=== PATIENT | male | born 1940 | race Caucasian/White ===

== ENCOUNTER → 2017-05-30 | Outpatient (REF) | payer OTHER ==
[~2017-05-30] MED LIST: /WARF5TA PO; ASPI1TAB PO; ASPIRIN PO; LEVO75TA4 PO; LEVOTHYROXINE PO; LIPI10TA PO; LIPITOR PO; MULTTAB PO; PERC7.5T12 PO; TYLE325T5 PO; VITA100066 PO; VITAMIN D PO; VITMTA PO
[2017-05-30 11:42] LABS: MEAN CORPUSCULAR HEMOGLOBIN 30.8 pg (27.0-33.0); MEAN CORPUSCULAR HGB CONC 33.3 g/dl (32.0-36.5); MEAN CORPUSCULAR VOLUME 92.3 fl (80.0-96.0); RED CELL DISTRIBUTION WIDTH 13.4 % (11.5-14.5); WHITE BLOOD COUNT 16.8 10^3/uL (4.0-10.0)
[2017-05-30 11:58] LABS: CBCMD ORDERED? YES (YES)
[2017-05-30 12:27] LABS: ALKALINE PHOSPHATASE 65 U/L (45-117); ALT/SGPT 29 U/L (12-78); ANION GAP 7 MEQ/L (8-16); AST/SGOT 13 U/L (15-37); BLOOD UREA NITROGEN 16 MG/DL (7-18); CALCIUM LEVEL 9.3 MG/DL (8.8-10.2); CARBON DIOXIDE LEVEL 28 MEQ/L (21-32); CHLORIDE LEVEL 105 MEQ/L (98-107); CHOLESTEROL LEVEL 154 MG/DL (<200); CREATININE FOR GFR 1.01 MG/DL (0.70-1.30); GLOMERULAR FILTRATION RATE > 60.0 (>42); GLUCOSE, FASTING 102 MG/DL (83-110); POTASSIUM SERUM 4.8 MEQ/L (3.5-5.1); SODIUM LEVEL 140 MEQ/L (136-145); TOTAL PROTEIN 6.8 GM/DL (6.4-8.2); TRIGLYCERIDES LEVEL 99 MG/DL (<150)
[2017-05-30 12:28] LABS: ALBUMIN 3.9 GM/DL (3.2-5.2); ALBUMIN/GLOBULIN RATIO 1.34 (1.00-1.93); FREE T4 0.87 NG/DL (0.76-1.46)
== END ==
LOC: M SFHCCLAY 06:53
PROVIDERS: ATTEND Family Medicine
DX: C91.10 Chronic lymphocytic leukemia of B-cell type not having achieved remission (principal); E78.2 Mixed hyperlipidemia; E89.0 Postprocedural hypothyroidism; R97.20 Elevated prostate specific antigen [PSA]

== ENCOUNTER → 2017-09-22 | Outpatient (CLI) | payer OTHER | LOC: M RAD 16:26 | DX: J06.9 Acute upper respiratory infection, unspecified (principal) | CPT/HCPCS: 71046 ==

== ENCOUNTER → 2018-05-28 | Outpatient (REF) | payer OTHER ==
[2018-05-28 13:04] LABS: HEMATOCRIT 39.6 % (42.0-52.0); HEMOGLOBIN 12.8 g/dl (13.5-17.5); MEAN CORPUSCULAR HEMOGLOBIN 30.5 pg (27.0-33.0); MEAN CORPUSCULAR HGB CONC 32.3 g/dl (32.0-36.5); MEAN CORPUSCULAR VOLUME 94.5 fl (80.0-96.0); PLATELET COUNT, AUTOMATED 173 10^3/uL (150-450); RED BLOOD COUNT 4.19 10^6/uL (4.30-6.10); RED CELL DISTRIBUTION WIDTH 13.6 % (11.5-14.5)
[2018-05-28 13:09] LABS: ADD MANUAL DIFFER YES; DIFF SLIDE NUMBER 226; POSITIVE DIFF POS FLAG; POSITIVE MORPH POS FLAG; WHITE BLOOD COUNT 21.5 10^3/uL (4.0-10.0)
[2018-05-28 13:22] LABS: ALBUMIN 3.5 GM/DL (3.2-5.2); ALBUMIN/GLOBULIN RATIO 1.25 (1.00-1.93); ALKALINE PHOSPHATASE 54 U/L (45-117); ALT/SGPT 33 U/L (12-78); ANION GAP 6 MEQ/L (8-16); AST/SGOT 18 U/L (7-37); BILIRUBIN,TOTAL 0.4 MG/DL (0.2-1.0); BLOOD UREA NITROGEN 21 MG/DL (7-18); CALCIUM LEVEL 8.7 MG/DL (8.8-10.2); CARBON DIOXIDE LEVEL 29 MEQ/L (21-32); CHLORIDE LEVEL 111 MEQ/L (98-107); CHOLESTEROL LEVEL 139 MG/DL (<200); CHOLESTEROL RISK RATIO 3.309 (<5); CREATININE FOR GFR 1.05 MG/DL (0.70-1.30); FREE T4 0.85 NG/DL (0.76-1.46); GLOMERULAR FILTRATION RATE > 60.0 (>42); GLUCOSE, FASTING 109 MG/DL (70-100); HDL CHOLESTEROL 42 MG/DL (>40); LDL CHOLESTEROL 72 MG/DL (<100); NON-HDL-C 97 MG/DL; POTASSIUM SERUM 4.8 MEQ/L (3.5-5.1); PROSTATIC SPECIFIC AG MONITOR 4.71 NG/ML (< 4.0); SODIUM LEVEL 146 MEQ/L (136-145); TOTAL PROTEIN 6.3 GM/DL (6.4-8.2); TRIGLYCERIDES LEVEL 123 MG/DL (<150)
[2018-05-28 13:29] LABS: ATYPICAL LYMPH 50 % (0-5); LYMPHOCYTES 21 % (16-52); MONOCYTES 7 % (0-8); NEUTROPHILS 22 % (35-75); NUCLEATED RED BLOOD CELL 1 % (0-0); PLATELET ESTIMATE NORMAL (NORMAL)
[2018-05-28 13:30] LABS: SMUDGE CELLS 1+
[2018-05-28 14:57] LABS: ESTIMATED AVERAGE GLUCOSE 128 MG/DL (60-110); HEMOGLOBIN A1c 6.1 %
== END ==
LOC: M SFHCCLAY 06:49
DX: C91.10 Chronic lymphocytic leukemia of B-cell type not having achieved remission (principal); E89.0 Postprocedural hypothyroidism; E74.9 Disorder of carbohydrate metabolism, unspecified; E78.2 Mixed hyperlipidemia; E55.9 Vitamin D deficiency, unspecified; R97.20 Elevated prostate specific antigen [PSA]
CPT/HCPCS: 84443

== ENCOUNTER → 2018-06-05 | Outpatient (CLI) | payer OTHER | LOC: M SMT 09:43 | DX: S13.140A Subluxation of C3/C4 cervical vertebrae, initial encounter (principal); S13.150A Subluxation of C4/C5 cervical vertebrae, initial encounter; X58.XXXA Exposure to other specified factors, initial encounter; Y92.89 Other specified places as the place of occurrence of the external cause; M25.78 Osteophyte, vertebrae; M17.11 Unilateral primary osteoarthritis, right knee; M54.2 Cervicalgia; M25.561 Pain in right knee; Z23 Encounter for immunization | CPT/HCPCS: 72052; 90682 ==

== ENCOUNTER → 2018-10-16 | Outpatient (CLI) | payer MEDICARE ==
[~2018-10-16] MED LIST changes: +FISH120016 PO; +LEVO50TA5 PO
[2018-10-16 11:44] LABS: HEMATOCRIT 41.5 % (42.0-52.0); HEMOGLOBIN 13.8 g/dl (13.5-17.5); MEAN CORPUSCULAR HEMOGLOBIN 30.3 pg (27.0-33.0); MEAN CORPUSCULAR HGB CONC 33.3 g/dl (32.0-36.5); MEAN CORPUSCULAR VOLUME 91.2 fl (80.0-96.0); PLATELET COUNT, AUTOMATED 172 10^3/uL (150-450); RED BLOOD COUNT 4.55 10^6/uL (4.30-6.10); WHITE BLOOD COUNT 24.8 10^3/uL (4.0-10.0)
[2018-10-16 12:02] LABS: ALT/SGPT 28 U/L (12-78); BILIRUBIN,TOTAL 0.7 MG/DL (0.2-1.0); BLOOD UREA NITROGEN 17 MG/DL (7-18); CALCIUM LEVEL 9.6 MG/DL (8.8-10.2); CARBON DIOXIDE LEVEL 29 MEQ/L (21-32); CHLORIDE LEVEL 103 MEQ/L (98-107); CREATININE FOR GFR 0.98 MG/DL (0.70-1.30); GLOMERULAR FILTRATION RATE > 60.0 (>42); GLUCOSE, FASTING 108 MG/DL (70-100); POTASSIUM SERUM 4.5 MEQ/L (3.5-5.1); SODIUM LEVEL 140 MEQ/L (136-145); TOTAL PROTEIN 6.7 GM/DL (6.4-8.2)
[2018-10-16 12:04] LABS: INR 0.96; PROTHROMBIN TIME 12.9 SECONDS (12.1-14.4)
[2018-10-16 12:14] LABS: ERYTHROCYTE SEDIMENTATION RATE 6 mm/hr (0-20)
--- NOTE | 2018-10-16 12:48 | REP ---
CHEST, TWO VIEWS: Two views of the chest are performed and compared to a prior study of 09/22/2017. There is no acute infiltrate with no change since the prior study. The heart is not enlarged. There is slight elevation of the left hemidiaphragm unchanged. There it tortuosity of the thoracic aorta. The mediastinal silhouette is unchanged. There are degenerative changes of the spine. IMPRESSION: No acute pulmonary disease. Electronically Signed by Marko Haile MD 10/19/2018 11:16 A
--- NOTE | 2018-10-17 17:34 | ECGEPIP ---
Stationary ECG Study [facility] Test Date: 2018-10-16 Pat Name: ANALY PADRON Department: Room: - Gender: M Bag Maker: [facility] : 1940 Requested By: Eliazar Kennedy Order Number: [id number] Reading MD: Tj Wylie Measurements Intervals [place] Rate: 65 P: 67 VT: 206 QRS: 4 QRSD: 94 T: 49 QT: 386 QTc: 402 Interpretive Statements SINUS RHYTHM Borderline first degree AV block Comparison tracing not on file Electronically Signed On 10-17-2018 17:33:38 EST by Tj Wylie
== END ==
LOC: M LAB 10:43
PROVIDERS: ATTEND Orthopaedic Surgery
DX: Z01.818 Encounter for other preprocedural examination (principal); M17.11 Unilateral primary osteoarthritis, right knee; I44.0 Atrioventricular block, first degree

== ENCOUNTER 2018-11-03 06:57 | Inpatient (IN) | payer MEDICARE ==
--- NOTE | 2018-10-23 13:06 | HPE ---
DATE OF ADMISSION: 11/03/2018 HISTORY OF PRESENT ILLNESS: This is a pleasant 78-year-old male with continuing symptomatic right knee osteoarthritis. He has consented for a right total knee arthroplasty per Dr. Brent Steiner. Medical optimization completed with Dr. Butler on 10/21/2018. The patient reports he was cleared, I am still awaiting the note. X-rays are consistent with advanced osteoarthritis. ALLERGIES: None known to drugs. MEDICATIONS (List includes): - levothyroxine sodium 125 mcg - atorvastatin calcium - fish oil 1000 mg - Multivitamin complete. MEDICAL PROBLEM LIST: 1. Right knee osteoarthritis. 2. Thyroid disease. 3. Hypercholesteremia. 4. Leukemia chronic lymphocytic. PAST SURGICAL HISTORY: 1. Left knee arthroplasty. 2. Right toe surgery. SOCIAL HISTORY: Denies smoking. Rarely intakes ethanol. Denies illicit drugs. FAMILY HISTORY: Positive for hypertension and arthritis. REVIEW OF SYSTEMS: Denies chest pain, shortness of breath, fever, chills, malaise, upper respiratory or urinary tract symptoms. ELECTROCARDIOGRAM (EKG): Borderline first-degree AV block read by Dr. Tj Wylie. CHEST X-RAY: Via [facility] service date 10/16/2018 with no acute pulmonary disease as read by Dr. Haile. LABS: Glucose fasting 108. White count was elevated at 24.8 and hematocrit at 41.5, otherwise within normal limits. His white count is likely attributable to his chronic lymphocytic disease. PHYSICAL EXAMINATION: Blood pressure (BP) 131/84. Pulse 66. Temperature 97.2. Height 66 inches. Weight 181 and 8 ounces. BMI 29.3. Respirations 13. He is a pleasant, well-developed, well-nourished, overweight 78-year-old male in no acute distress. Alert and oriented times three. Mood and affect are appropriate. Bilateral lower extremities were inspected. Skin temperature, color, sensory and motor within normal limits. Benign noninfectious looking limbs. Left total knee arthroplasty noted with a well-healed benign noninfectious looking scar. Right knee with positive joint line tenderness to palpation with crepitance about the knee through flexion/extension. PFJ is congruent, static and dynamic. Negative popliteal fossa mass or pain. Right hip range of motion is not grossly limited or irritable during internal or external range of motion. Bowels soft, nontender times four. Chest rises symmetrically. Regular rate and rhythm. Lungs clear to auscultation. Neck supple. Negative jugular venous distention (JVD) or bruits. Normocephalic. IMPRESSION: 1. Right knee symptomatic advanced degenerative joint disease (DJD). 2. Patient consented for right total knee arthroplasty per Dr. Brent Warren. 3. Medical optimization completed with Dr. Butler on 10/21/2018, per patient, we are awaiting clearance note. 4. On-call to OR, 2 grams IV Kefzol in OR. 5. Sequential compression device (SCD) and thromboembolic deterrent stockings (TEDS) in OR. 6. His consent was updated today. [facility]
[2018-11-03] VITALS (8 sets, daily range): BP systolic 140–162; BP diastolic 81–94
[~2018-11-03] VITALS: Ht 170.2 cm; Wt 83.8 kg
[~2018-11-03 06:57] MED LIST changes: +ACETAMINOPHEN 500 MG TAB PO ONE; +LR 1,000 ML IV ONE; +fentaNYL 100 MCG/2 ML INJECTION (J3010) IV SCH
[2018-11-03] MEDS ORDERED: EPINEPHrine INJ 1 MG/ML 1ML AMP As Ordered ONE (07:17)
[2018-11-03] MEDS ORDERED: ceFAZolin 1GM INJ (J0690 PER 500MG) As Ordered ONE (07:18)
[2018-11-03] MEDS ORDERED: TRANEXAMIC ACID 100 MG/ML 10ML VIAL As Ordered ONE (07:18)
[2018-11-03] MEDS ORDERED: BUPIVACAINE HCL 0.25% 30 ML VIAL As Ordered ONE (07:18)
[2018-11-03] MEDS ORDERED: fentaNYL 100 MCG/2 ML INJECTION (J3010) As Ordered ONE ×2 (08:25→09:26)
[2018-11-03] MEDS ORDERED: MIDAZOLAM INJ 2 MG/2 ML VIAL (J2250) As Ordered ONE ×2 (08:25→09:26)
[2018-11-03] MEDS: MIDAZOLAM INJ 2 MG/2 ML VIAL (J2250) IV SCH ×2 (08:38→08:40)
[2018-11-03] MEDS ORDERED: PROPOFOL 500 MG/50 ML VIAL As Ordered ONE (09:26)
[2018-11-03] MEDS ORDERED: BUPIVACAINE/DEXTROSE 0.75% 2 ML AMP As Ordered ONE (09:26)
[2018-11-03] MEDS ORDERED: BUPIVACAINE LIPOSOME/PF 1.3% 20ML VIAL (13.3MG/ML)(EXPAREL)(C9290 PER1MG) As Ordered ONE (09:29)
[2018-11-03] MEDS ORDERED: ePHEDrine SULFATE 25 MG/5 ML(5MG/ML) SYRINGE As Ordered ONE ×2 (09:51→10:45)
[2018-11-03] MEDS ORDERED: ONDANSETRON 4MG/2ML VIAL (J2405) IV PRN ×2 (11:15→17:15)
[2018-11-03] MEDS ORDERED: ACETAMINOPHEN TAB 650MG DOSE (2X325MG) PO PRN (11:15)
[2018-11-03] MEDS ORDERED: fentaNYL 100 MCG/2 ML INJECTION (J3010) IV PRN (11:15)
[2018-11-03] MEDS ORDERED: LR 1,000 ML IV SCH ×2 (11:15)
[2018-11-03] MEDS ORDERED: PERCOCET 5MG/325MG TAB PO PRN ×2 (11:15→17:15)
[2018-11-03] MEDS ORDERED: FLEET ENEMA PR PRN (11:15)
[2018-11-03] MEDS ORDERED: HYDROMORPHONE HCL 0.5 MG/ 0.5 ML SYRINGE (J1170 PER 1) IV PRN ×2 (11:30)
[2018-11-03] MEDS ORDERED: HYDROmorphone HCL 1 MG/ML SYRINGE (J1170) IV PRN (11:30)
--- NOTE | 2018-11-03 11:49 | REP ---
RIGHT KNEE: Two views. HISTORY: Status post total knee. COMPARISON STUDY: June 05, 2018. FINDINGS: The patient is status post right knee arthroplasty. Arthroplasty components are well aligned with respect to each other and their quina[place] bones. Suprapatellar soft tissue gas and swelling is seen. Prepatellar cyst and rachel are noted. IMPRESSION: Status post right knee arthroplasty. Electronically Signed by Bob Lundberg MD 11/03/2018 02:56 P
[2018-11-03] MEDS ORDERED: dexameTHASONE 10 MG/1 ML VIAL PRES.FREE (J1100) ONE (14:12)
[2018-11-03] MEDS ORDERED: ROPIvacaine 0.5% 30 ML INJECTION (J2795 PER 1MG) ONE (14:12)
[2018-11-03] MEDS ORDERED: LIDOCAINE 1% MDV 20ML VIAL ONE (14:12)
[2018-11-03] MEDS: PERCOCET 5MG/325MG TAB PO PRN (17:37)
--- NOTE | 2018-11-03 18:58 | IPNPDOC ---
Text Note Date of Service The patient was seen on 11/03/18. NOTE Subjective: Patient is a 78-year-old male with a PMHx of OA, Hypothyroidism, DLP, CLL who presented to [facility] for an elective right knee arthroplasty with orthopedic surgery. Patient has received outpatient medical clearance. Hospitalist service was consult and for further evaluation and treatment of medical problems Patient was seen and examined at the bedside. Currently patient denies any chest pain, shortness of breath, palpitations, nausea, vomiting, abdominal pain. Has not yet experienced a bowel movement nor has he passed any gas. He denies any urinary discomfort. Objective: Vitals (See below) General: Lying in bed, no acute distress, comfortable, AAOx3 HEENT: NC, AT CVS: RRR, +S1S2 Lungs: Fair air entry b/l, -w/r/r Abdomen: Soft, ND, NT Extremities: - Edema, - Calf tenderness, right knee in dressing Assessment and plan: Right knee osteoarthritis - s/p total right knee arthroplasty (POD#0) - Patient presented to [facility] for an elective right knee arthroplasty with orthopedic surgery - Pain control anti-coagulation and physical therapy at the direction orthopedic surgery Hypothyroidism - c/w levothyroxine DLP - c/w Atorvastatin CLL - Patient is indicated that he has not yet received any therapy for this - Patient follows with oncology in [place] - He is indicated that they currently monitor this every 6 months; however it has not yet required treatment DVT prophylaxis - Anticoagulation as per orthopedic surgery VS,Fishbone, I+O VS, Fishbone, I+O Vital Signs Date Time Temp Pulse Resp B/P (MAP) Pulse Ox O2 Delivery O2 Flow Rate FiO2 11/03/18 18:07 18 11/03/18 17:40 97.4 73 146/87 (106) 93 11/03/18 10:57 2 DOMINIK APPLE MD Nov 03, 2018 18:58
[2018-11-03] MEDS ORDERED: ATORVASTATIN 10 MG TAB PO SCH (21:00)
[2018-11-04] MEDS: PERCOCET 5MG/325MG TAB PO PRN (01:42)
[2018-11-04 02:00] VITALS: BP 117/66
[2018-11-04 06:00] VITALS: BP 132/72
[2018-11-04] MEDS ORDERED: LEVOTHYROXINE 50MCG TABLET (0.05MG) PO SCH (06:00)
[2018-11-04 07:18] LABS: HEMATOCRIT 34.8 % (42.0-52.0); HEMOGLOBIN 11.7 g/dl (13.5-17.5); MEAN CORPUSCULAR HEMOGLOBIN 30.2 pg (27.0-33.0); MEAN CORPUSCULAR HGB CONC 33.6 g/dl (32.0-36.5); MEAN CORPUSCULAR VOLUME 89.7 fl (80.0-96.0); PLATELET COUNT, AUTOMATED 152 10^3/uL (150-450); RED BLOOD COUNT 3.88 10^6/uL (4.30-6.10)
[2018-11-04 07:33] LABS: INR 1.11; PROTHROMBIN TIME 14.5 SECONDS (12.1-14.4)
[2018-11-04 07:39] LABS: WHITE BLOOD COUNT 31.1 10^3/uL (4.0-10.0)
[2018-11-04 07:44] LABS: BLOOD UREA NITROGEN 17 MG/DL (7-18); CALCIUM LEVEL 9.2 MG/DL (8.8-10.2); CARBON DIOXIDE LEVEL 26 MEQ/L (21-32); CHLORIDE LEVEL 106 MEQ/L (98-107); CREATININE FOR GFR 1.08 MG/DL (0.70-1.30); GLOMERULAR FILTRATION RATE > 60.0 (>42); GLUCOSE, FASTING 136 MG/DL (70-100); POTASSIUM SERUM 4.3 MEQ/L (3.5-5.1); SODIUM LEVEL 139 MEQ/L (136-145)
[2018-11-04 07:45] LABS: LYMPHOCYTES 53 % (16-52); MONOCYTES 1 % (0-8); NEUTROPHILS 46 % (35-75)
[2018-11-04 07:46] LABS: PLATELET ESTIMATE DECREASED (NORMAL)
--- NOTE | 2018-11-04 08:19 | RO ---
DATE OF PROCEDURE: 11/03/2018 PREOPERATIVE DIAGNOSIS: Right knee degenerative arthritis. POSTOPERATIVE DIAGNOSIS: Right knee degenerative arthritis. PROCEDURE: Right total knee arthroplasty using a size 5 cruciate retaining Attune femoral component cemented with a size 7 tibial tray and a 6 mm rotating platform polyethylene insert and a 35 mm polyethylene button. Prosthesis made by [employer]. It was an Attune knee. SURGEON: Dr. Eliazar Steiner ENVIRONMENTAL ENGINEERING ASSISTANT: Mr. Vu Banks ANESTHESIA: Spinal with right femoral nerve block. COMPLICATIONS: None. SPECIMENS: Joint surface. TOURNIQUET TIME: 53 minutes. PROCEDURE: Antibiotics were given intravenously preoperatively and a successful right femoral nerve block and then spinal anesthetic was induced and a tourniquet was placed right upper thigh and non-inflated. Right lower extremity was carefully prepped and draped in the usual sterile fashion, leg elevated and an appropriate time out and tourniquet was inflated and a longitudinal incision was made for medial parapatellar approach to the knee. Bovie cautery was used to coagulate the crossing the vessels. Subperiosteal dissection of the proximal medial and lateral tibial plateaus were performed. The patella was everted and the knee was flexed. ACL debrided. Drill placed down the center of the femoral canal followed by the intramedullary melody and the distal femoral cutting jig set at a 5 degree valgus cut at 9 mm resection level for a right knee. It was pinned in position and then a distal femoral cut was performed. AP sizing jig measured for a size 5. 3 degrees of external rotation were dialed into the position and the pins were placed followed by the 4-in-1 block and the anterior posterior chamfer cuts were performed taking great care to protect to the surrounding soft tissues. The notch plasty was performed using a jig after it was secured and then checked to be sure that it was flush and then we exposed the proximal tibia and used the extramedullary alignment jig to estimate being parallel to the mechanical axis of the proximal tibia referencing off the medial tibial condyle at 4 mm resection level. The block was pinned in position and a secondary check with extramedullary melody confirmed that we appear to be parallel to the mechanical axis with appropriate slope. We then performed the proximal tibial osteotomy. Lamina ski patrol officer was then placed medially and we performed a completion lateral meniscectomy and debridement of posterior lateral osteophytes which were just minimal and then we placed the lamina ski patrol officer laterally and performed a completion medial meniscectomy and debrided some small posterior medial osteophytes. The 6 mm spacer fit very nicely with good symmetry in both flexion and in extension to varus and valgus stress testing. I then exposed the proximal tibia and sized for a #7 tray which fit the best. It was pinned in position, followed by the reamer and broach and the trial polyethylene placed. The trial femoral component was placed and we brought to the knee into extension and everted the patella and performed a patellar osteotomy. Sized for a 35 mm button. The level was drilled and a trial placed and patellofemoral tracking with anatomic. At this point we drilled the lug holes for the femur and removed all the trial components and then we placed Exparel in the subperiosteal tissues around the distal femur and the proximal tibia. Copious amount of pulsatile lavage irrigant solution was then instilled in the knee as we did several times actually throughout the operation and as I was preparing the bony surfaces for cementing my customer assistant Mr. Vu Banks mixed the cement on the back table. He was also critical to the success of this operating by helping to apply appropriate soft-tissue retraction and help to manipulate the knee in flexion and extension as needed so I can perform the operation safely and smoothly and efficiently as well as help with mixing the cement and preparing the patient and closing the wound amongst many other tasks. Once all the bony surfaces were thoroughly dried, we cemented the tibial tray and removed excess cement and then placed the polyethylene and then cemented the femoral component and removed excess cement and brought the knee into extension and held it in extension as I cemented the patellar button and held it with a clamp and then removed the excess cement. As we were awaiting the cement to harden. We copiously pulsatile lavaged irrigated out the knee joint once again and then instilled TXA and then began closing the apex of the arthrotomy with two #1 PDS sutures and then a running double arm #1 Stratafix was used to close the capsule then we let the tourniquet down. We irrigated again and closed the deep subdermal tissues with interrupted 2-0 PDS sutures. Skin was closed with racehl. Covered by an Optifoam or dry sterile bulky dressing and then he was transferred to the recovery room in stable condition. There are no intraoperative complications.
[2018-11-04] MEDS ORDERED: XARE10TA PO (08:48)
[2018-11-04] MEDS ORDERED: PERC5TAB12 PO (08:48)
[2018-11-04] MEDS ORDERED: MULTIVITAMINS/MINERALS THERAP 1 TAB PO SCH (09:00)
[2018-11-04] MEDS ORDERED: MIRALAX *UNIT DOSE* 17GM PACKET PO SCH (09:00)
[2018-11-04] MEDS ORDERED: OMEGA-3 1000MG CAPSULE PO SCH (09:00)
[2018-11-04] MEDS ORDERED: MOM 30ML SUSPENSION UDC PO SCH (09:00)
[2018-11-04 10:00] VITALS: BP 128/88
--- NOTE | 2018-11-04 10:46 | IPNPDOC ---
Subjective Date Seen The patient was seen on 11/04/18. Subjective Chief Complaint/HPI RIGHT TKA Events since last encounter S/p RIGHT TKA with Ortho. WBC elevated at 31.1 todya. Patient has hx of CLL and WBC remains around 20-22,000 at baseline. Patient hoping to go home today. Pulmonary: Denies: Dyspnea, Cough Cardiovascular: Denies: Chest Pain, Palpitations, Orthopnea, Paroxysmal Noc. Dyspnea, Lt Headedness Gastrointestinal: Denies: Nausea, Vomiting, Abdominal Pain, Diarrhea, Constipation Objective Physical Examination General Exam: Positive: Alert, No Acute Distress Chest Exam: Positive: Clear to auscultation, Normal air movement Heart Exam: Positive: Rate Normal, Regular Rhythm, Normal S1, Normal S2; Negative: Murmurs, Rubs Abdomen Exam: Positive: Normal bowel sounds, Soft; Negative: Tenderness, Hepatospenomegaly Skin Exam: Positive: Nl turgor and temperature; Negative: Rash, Breakdown Psych Exam: Positive: Mental status NL, Mood NL, Oriented x 3 Assessment /Plan Problems (1) Status post total right knee replacement Problem Text: Continue with anti-coagulation per Ortho recommendations. (2) CLL (chronic lymphocytic leukemia) Problem Text: repeat CBC in am if still in hospital. otherwise recheck in 3-5 days. (3) Hypothyroid Status: Chronic Response to Treatment: Stable Plan/VTE VTE Prophylaxis Ordered?: Yes VS, I&O, 24H, Fishbone Vital Signs/I&O Vital Signs Date Time Temp Pulse Resp B/P (MAP) Pulse Ox O2 Delivery O2 Flow Rate FiO2 11/04/18 09:32 18 11/04/18 06:00 97.6 99 132/72 (92) 98 11/03/18 10:57 2 I&O- Last 24 Hours up to 6 AM 11/04/18 06:00 Intake Total 3995 ml Output Total 2090 ml Balance 1905 ml Laboratory Data 24H LABS Laboratory Tests 2 11/04/18 06:55: White Blood Count 31.1*H, Red Blood Count 3.88L, Hemoglobin 11.7L, Hematocrit 34.8L, Mean Corpuscular Volume 89.7, Mean Corpuscular Hemoglobin 30.2, Mean Corpuscular Hemoglobin Concent 33.6, Red Cell Distribution Width 13.7, Platelet Count 152, Lymphocytes # (Auto) , Monocytes # (Auto) , Nucleated Red Blood Cells % (auto) 0.0, Neutrophils 46, Lymphocytes (Manual) 53H, Monocytes (Manual) 1, Platelet Estimate DECREASED, Prothrombin Time 14.5H, Prothromb Time International Ratio 1.11, Anion Gap 7L, Glomerular Filtration Rate > 60.0, Blood Urea Nitrogen 17, Creatinine 1.08, Sodium Level 139, Potassium Level 4.3, Chloride Level 106, Carbon Dioxide Level 26, Calcium Level 9.2, Magnesium Level 2.0 CBC/BMP Laboratory Tests 11/04/18 06:55 Red Blood Count 3.88 L, Mean Corpuscular Volume 89.7, Mean Corpuscular Hemoglobin 30.2, Mean Corpuscular Hemoglobin Concent 33.6, Red Cell Distribution Width 13.7, Lymphocytes # (Auto) , Monocytes # (Auto) , Calcium Level 9.[address] [facility] Nov 04, 2018 10:46
[2018-11-04] MEDS ORDERED: RIVAROXABAN 10 MG TAB (XARELTO) PO SCH (18:00)
== END 2018-11-04 14:00 | disposition home or self-care (01) | DRG 470 ==
LOC: M OR 06:57 → M MS5PR 13:05
PROVIDERS: ADMIT Orthopaedic Surgery; ATTEND Orthopaedic Surgery
PROC: 0SRC0J9 Replacement of Right Knee Joint with Synthetic Substitute, Cemented, Open Approach (ICD-10-PCS; principal; 2018-11-03 09:45)
DX: M17.11 Unilateral primary osteoarthritis, right knee (principal); C91.10 Chronic lymphocytic leukemia of B-cell type not having achieved remission; Z79.899 Other long term (current) drug therapy; E78.00 Pure hypercholesterolemia, unspecified; Z96.652 Presence of left artificial knee joint; E89.0 Postprocedural hypothyroidism; E55.9 Vitamin D deficiency, unspecified; N40.0 Benign prostatic hyperplasia without lower urinary tract symptoms; E78.2 Mixed hyperlipidemia

== ENCOUNTER → 2018-11-11 | Outpatient (CLI) | payer MEDICARE ==
[~2018-11-11] MED LIST changes: -/WARF5TA PO; -ACETAMINOPHEN 500 MG TAB PO ONE; -ASPI1TAB PO; +ASPI81TA26 PO; +COUM1TAB17 PO; -LR 1,000 ML IV ONE; +PERC5TAB12 PO; +XARE10TA PO; -fentaNYL 100 MCG/2 ML INJECTION (J3010) IV SCH
--- NOTE | 2018-11-11 11:32 | REP ---
Right lower extremity Duplex Doppler venous ultrasound: Real time compression and duplex Doppler interrogation of the right lower extremity deep venous system is performed. The right common femoral, superficial femoral and popliteal veins are fully compressible with transducer pressure and demonstrate normal spontaneous and phasic flow, without evidence of deep venous thrombosis. Impression: No evidence of deep venous thrombosis of the right lower extremity femoral popliteal venous system. Note is made of a medial thigh hematoma measuring 14 x 7 x 2.5 cm. Electronically Signed by Marko Haile MD 11/11/2018 11:24 A
== END ==
LOC: M RAD 10:45
PROVIDERS: ATTEND Family Medicine
DX: R22.41 Localized swelling, mass and lump, right lower limb (principal)

== ENCOUNTER → 2018-11-12 | Outpatient (REF) | payer MEDICARE ==
[2018-11-12 19:50] LABS: ALBUMIN 3.5 GM/DL (3.2-5.2); ALT/SGPT 29 U/L (12-78); BILIRUBIN,TOTAL 0.9 MG/DL (0.2-1.0); BLOOD UREA NITROGEN 20 MG/DL (7-18); CALCIUM LEVEL 9.4 MG/DL (8.8-10.2); CARBON DIOXIDE LEVEL 29 MEQ/L (21-32); CHLORIDE LEVEL 104 MEQ/L (98-107); CREATININE FOR GFR 1.02 MG/DL (0.70-1.30); GLOMERULAR FILTRATION RATE > 60.0 (>42); GLUCOSE, FASTING 121 MG/DL (70-100); POTASSIUM SERUM 4.8 MEQ/L (3.5-5.1); SODIUM LEVEL 139 MEQ/L (136-145); TOTAL PROTEIN 6.5 GM/DL (6.4-8.2)
[2018-11-12 20:05] LABS: HEMATOCRIT 37.7 % (42.0-52.0); HEMOGLOBIN 12.1 g/dl (13.5-17.5); MEAN CORPUSCULAR HEMOGLOBIN 30.4 pg (27.0-33.0); MEAN CORPUSCULAR HGB CONC 32.1 g/dl (32.0-36.5); MEAN CORPUSCULAR VOLUME 94.7 fl (80.0-96.0); PLATELET COUNT, AUTOMATED 287 10^3/uL (150-450); RED BLOOD COUNT 3.98 10^6/uL (4.30-6.10)
[2018-11-12 20:08] LABS: WHITE BLOOD COUNT 22.9 10^3/uL (4.0-10.0)
[2018-11-12 20:53] LABS: ATYPICAL LYMPH 25 % (0-5); BASOPHILS 1 % (0-4); LYMPHOCYTES 35 % (16-52); MONOCYTES 8 % (0-8); NEUTROPHILS 31 % (35-75)
[2018-11-12 20:57] LABS: PLATELET ESTIMATE NORMAL (NORMAL); SMUDGE CELLS 1+
== END ==
LOC: M SFHCADAM 14:12
PROVIDERS: ATTEND Physician Assistant
DX: Z96.651 Presence of right artificial knee joint (principal); S80.11XA Contusion of right lower leg, initial encounter; D72.829 Elevated white blood cell count, unspecified; C91.90 Lymphoid leukemia, unspecified not having achieved remission
CPT/HCPCS: 80053; 85025; 99496; G0463

== ENCOUNTER → 2019-04-21 | Outpatient (REF) | payer MEDICARE ==
[2019-04-21 11:35] LABS: HEMATOCRIT 42.8 % (42.0-52.0); HEMOGLOBIN 14.1 g/dl (13.5-17.5); MEAN CORPUSCULAR HEMOGLOBIN 30.4 pg (27.0-33.0); MEAN CORPUSCULAR HGB CONC 32.9 g/dl (32.0-36.5); MEAN CORPUSCULAR VOLUME 92.2 fl (80.0-96.0); PLATELET COUNT, AUTOMATED 170 10^3/uL (150-450); RED BLOOD COUNT 4.64 10^6/uL (4.30-6.10)
[2019-04-21 11:37] LABS: WHITE BLOOD COUNT 23.2 10^3/uL (4.0-10.0)
[2019-04-21 11:51] LABS: ALT/SGPT 29 U/L (12-78); BILIRUBIN,TOTAL 1.2 MG/DL (0.2-1.0); BLOOD UREA NITROGEN 20 MG/DL (7-18); CARBON DIOXIDE LEVEL 28 MEQ/L (21-32); CHLORIDE LEVEL 105 MEQ/L (98-107); CHOLESTEROL LEVEL 144 MG/DL (<200); CHOLESTEROL RISK RATIO 2.938 (<5); FREE T4 1.02 NG/DL (0.76-1.46); GLOMERULAR FILTRATION RATE > 60.0 (>42); GLUCOSE, FASTING 105 MG/DL (70-100); HDL CHOLESTEROL 49 MG/DL (>40); LDL CHOLESTEROL 82 MG/DL (<100); NON-HDL-C 95 MG/DL; POTASSIUM SERUM 4.9 MEQ/L (3.5-5.1); PROSTATIC SPECIFIC AG MONITOR 4.54 NG/ML (< 4.00); SODIUM LEVEL 141 MEQ/L (136-145); TOTAL 25(OH) VITAMIN D 64.5 NG/ML (30.0-100.0); TOTAL PROTEIN 6.8 GM/DL (6.4-8.2); TRIGLYCERIDES LEVEL 64 MG/DL (<150)
[2019-04-21 11:56] LABS: HEMOGLOBIN A1c 6.4 %
[2019-04-21 12:13] LABS: LYMPHOCYTES 87 % (16-44); MONOCYTES 3 % (0-5); NEUTROPHILS 10 % (28-66); PLATELET ESTIMATE NORMAL (NORMAL)
== END ==
LOC: M SFHCCLAY 06:57
PROVIDERS: ATTEND Family Medicine
DX: C91.10 Chronic lymphocytic leukemia of B-cell type not having achieved remission (principal); E74.9 Disorder of carbohydrate metabolism, unspecified; E89.0 Postprocedural hypothyroidism; E78.2 Mixed hyperlipidemia; E55.9 Vitamin D deficiency, unspecified; R97.20 Elevated prostate specific antigen [PSA]

== ENCOUNTER → 2020-05-04 | Outpatient (REF) | payer MEDICARE ==
[2020-05-04 13:06] LABS: HEMATOCRIT 43.1 % (42.0-52.0); HEMOGLOBIN 13.7 g/dl (13.5-17.5); MEAN CORPUSCULAR HEMOGLOBIN 30.3 pg (27.0-33.0); MEAN CORPUSCULAR HGB CONC 31.8 g/dl (32.0-36.5); MEAN CORPUSCULAR VOLUME 95.4 fl (80.0-96.0); PLATELET COUNT, AUTOMATED 172 10^3/uL (150-450); RED BLOOD COUNT 4.52 10^6/uL (4.30-6.10)
[2020-05-04 13:12] LABS: ALBUMIN 3.8 GM/DL (3.2-5.2); ALT/SGPT 29 U/L (12-78); BLOOD UREA NITROGEN 17 MG/DL (7-18); CALCIUM LEVEL 9.4 MG/DL (8.8-10.2); CARBON DIOXIDE LEVEL 28 MEQ/L (21-32); CHLORIDE LEVEL 107 MEQ/L (98-107); CHOLESTEROL LEVEL 134 MG/DL (<200); CHOLESTEROL RISK RATIO 3.045 (<5); CREATININE FOR GFR 1.14 MG/DL (0.70-1.30); GLOMERULAR FILTRATION RATE > 60.0 (>35); GLUCOSE, FASTING 113 MG/DL (70-100); HDL CHOLESTEROL 44 MG/DL (>40); LDL CHOLESTEROL 75 MG/DL (<100); NON-HDL-C 90 MG/DL; POTASSIUM SERUM 4.5 MEQ/L (3.5-5.1); PROSTATIC SPECIFIC AG MONITOR 5.47 NG/ML (< 4.00); SODIUM LEVEL 140 MEQ/L (136-145); TOTAL PROTEIN 6.4 GM/DL (6.4-8.2); TRIGLYCERIDES LEVEL 73 MG/DL (<150)
[2020-05-04 13:18] LABS: WHITE BLOOD COUNT 34.7 10^3/uL (4.0-10.0)
[2020-05-04 13:43] LABS: HEMOGLOBIN A1c 6.5 %
[2020-05-04 14:12] LABS: ANISOCYTOSIS 1+; EOSINOPHILS 1 % (0-3); LYMPHOCYTES 79 % (16-44); MONOCYTES 9 % (0-5); NEUTROPHILS 11 % (28-66); PLATELET ESTIMATE NORMAL (NORMAL)
== END ==
LOC: M LABDRAWC 11:31
PROVIDERS: ATTEND Family Medicine
DX: C91.10 Chronic lymphocytic leukemia of B-cell type not having achieved remission (principal); E89.0 Postprocedural hypothyroidism; R97.20 Elevated prostate specific antigen [PSA]; E74.9 Disorder of carbohydrate metabolism, unspecified; E78.5 Hyperlipidemia, unspecified; Z79.899 Other long term (current) drug therapy

== ENCOUNTER → 2020-06-21 | Outpatient (CLI) | payer MEDICARE ==
[~2020-06-21] MED LIST changes: +GASTROGRAFIN SOLUTION 30ML (Q9963) As Ordered ONE; +ISOVUE-370 76% 100ML VIAL As Ordered ONE
--- NOTE | 2020-06-23 06:08 | REP ---
INDICATION: MANTLE CELL LYMPHOMA COMPARISON: 04/12/2005 TECHNIQUE: Axial contrast enhanced images from the thoracic inlet to the upper abdomen with coronal and sagittal reformations using 100 ml Isovue 370 intravenous contrast material followed by CT of the abdomen and pelvis. This CT examination was performed using the following dose reduction techniques: Automated exposure control, adjustment of mA and/or kv according to the patient's size, and use of iterative reconstruction technique. FINDINGS: There is a 9 mm nodule along the medial apical portion of the right middle lobe (image 57). No other suspicious nodule or mass lesion identified. No consolidation or effusion. No pneumothorax. Tracheobronchial tree is patent. No axillary, hilar, or mediastinal adenopathy is appreciated. Thoracic aorta is normal. Atherosclerotic changes to the coronary arteries noted without cardiomegaly or pericardial effusion. A small hiatal hernia is identified at the gastroesophageal junction. Surrounding musculoskeletal structures demonstrate age-related changes without acute osseous abnormality. IMPRESSION: Solitary 9 mm pulmonary nodule in the apical right middle lobe. Consider PET-CT and/or short-term three-month initial follow-up examination. <Electronically signed by Salty Morse > 06/23/20 0605
--- NOTE | 2020-06-23 06:15 | REP ---
INDICATION: MANTLE CELL LYMPHOMA. COMPARISON: 01/11/2016 TECHNIQUE: Axial contrast-enhanced images from the lung bases to the pubic symphysis using 100 cc Isovue 370 intravenous contrast material. Delayed images of the abdomen obtained along with coronal and sagittal reformations. This CT examination was performed using the following dose reduction techniques: Automated exposure control, adjustment of mA and/or kv according to the patient's size, and the use of iterative reconstruction technique. FINDINGS: Liver, spleen, pancreas, gallbladder, bilateral adrenal glands and kidneys are essentially normal. Mild hepatosteatosis cannot be excluded. Evaluation of the enteric system demonstrates small hiatal hernia at the gastroesophageal junction. Colonic and sigmoid diverticulosis noted. No evidence for obstruction or definite acute inflammatory process. Normal terminal ileum and appendix are identified in the right lower quadrant. Pelvis demonstrates heterogeneous enlarged prostate gland similar to prior examination with mass effect on the base of the bladder. Small fat containing inguinal hernia is noted. No ascites. No free air. Few scattered nonspecific mesenteric lymph nodes measure up to approximately 13 mm. Abdominal aorta and vasculature appear normal. Musculoskeletal structures demonstrate age-related degenerative changes without acute osseous abnormality. IMPRESSION: 1. Mild hepatosteatosis. 2. Nonspecific mesenteric lymph nodes measuring up to 13 mm. No retroperitoneal adenopathy. No ascites. No focal mass. 3. Diverticulosis. 4. Prostatomegaly. <Electronically signed by Salty Morse > 06/23/20 0612
== END ==
LOC: M RAD 09:58
PROVIDERS: ATTEND Family Medicine
DX: R91.1 Solitary pulmonary nodule (principal); N40.1 Benign prostatic hyperplasia with lower urinary tract symptoms; R59.0 Localized enlarged lymph nodes; K76.89 Other specified diseases of liver; C83.10 Mantle cell lymphoma, unspecified site
CPT/HCPCS: 71260; 74177; Q9963; Q9967

== ENCOUNTER → 2020-06-26 | Outpatient (REF) | payer MEDICARE ==
[~2020-06-26] MED LIST changes: -GASTROGRAFIN SOLUTION 30ML (Q9963) As Ordered ONE; -ISOVUE-370 76% 100ML VIAL As Ordered ONE
== END ==
LOC: M SMT 13:10
PROVIDERS: ATTEND Urology
DX: R97.20 Elevated prostate specific antigen [PSA] (principal); Z79.899 Other long term (current) drug therapy
CPT/HCPCS: 51798; 81002; 87086; G0463

== ENCOUNTER → 2020-06-27 | Outpatient (REF) | payer MEDICARE ==
[2020-06-27 16:55] LABS: BLOOD UREA NITROGEN 16 MG/DL (7-18); CALCIUM LEVEL 9.1 MG/DL (8.8-10.2); CARBON DIOXIDE LEVEL 29 MEQ/L (21-32); CHLORIDE LEVEL 106 MEQ/L (98-107); CREATININE FOR GFR 1.17 MG/DL (0.70-1.30); FREE T4 1.08 NG/DL (0.76-1.46); GLOMERULAR FILTRATION RATE > 60.0 (>35); GLUCOSE, FASTING 100 MG/DL (70-100); POTASSIUM SERUM 4.8 MEQ/L (3.5-5.1); SODIUM LEVEL 139 MEQ/L (136-145)
[2020-06-29 23:07] LABS: PSA TOTAL 2.4 ng/mL (0.0-4.0)
== END ==
LOC: M SFHCCLAY 10:26
PROVIDERS: ATTEND Urology
DX: E89.0 Postprocedural hypothyroidism (principal); C83.10 Mantle cell lymphoma, unspecified site; E74.9 Disorder of carbohydrate metabolism, unspecified; R97.20 Elevated prostate specific antigen [PSA]

== ENCOUNTER → 2020-07-10 | Outpatient (CLI) | payer MEDICARE ==
--- NOTE | 2020-07-10 14:10 | PFTRPT ---
Height: 67.00 Inches Weight: 180.00 Lbs BSA: 1.93 Diagnosis: R06.00 DATE: 07/10/2020 ORDERING PHYSICIAN: Dr. Butler Pre and post bronchodilator studies have excellent technical quality. Forced vital capacity is normal. FEV1 is in proportion. Obstructive index is therefore normal. Expiratory limit of the flow-volume loop is normal. Total gas volume is normal. Lung capacity could otherwise not be measured. Diffusing capacity is normal. Airway resistance and conductance are normal. IMPRESSION: Essentially normal study. MTDD
--- NOTE | 2020-07-11 12:22 | PULFX ---
[facility] PULMONARY FUNCTION TEST ORDERING PHYSICIAN: Dr. Butler Pre and post bronchodilator studies have excellent technical quality. Forced vital capacity is normal. FEV1 is in proportion. Obstructive index is therefore normal. Expiratory limit of the flow-volume loop is normal. Total gas volume is normal. Lung capacity could otherwise not be measured. Diffusing capacity is normal. Airway resistance and conductance are normal. IMPRESSION: Essentially normal study. /htstl
== END ==
LOC: M CARPUL 13:32
PROVIDERS: ATTEND Family Medicine
DX: R06.00 Dyspnea, unspecified (principal)

== ENCOUNTER → 2020-07-25 | Outpatient (CLI) | payer MEDICARE ==
[~2020-07-25] MED LIST changes: +METHACHOLINE KIT (J7674) INH ONE
--- NOTE | 2020-07-25 13:36 | PFTRPT ---
Height: 67.00 Inches Weight: 180.00 Lbs BSA: 1.93 Diagnosis: R06.02 DATE: 07/25/2020 METHACHOLINE CHALLENGE STUDY ORDERED BY: AYESHA URIBE M.D. QUALITY: Study of excellent technical quality. PROCEDURE: Under protocol, methacholine was administered. Even after a maximal dose of 25 mg or 188.875 CDUs, no provocation dose ever achieved. IMPRESSION: Negative methacholine challenge study. MTDD
== END ==
LOC: M CARPUL 12:33
PROVIDERS: ATTEND Internal Medicine Pulmonary Disease
DX: R06.02 Shortness of breath (principal)
CPT/HCPCS: 94070; 95070; J7674

== ENCOUNTER → 2020-08-01 | Outpatient (CLI) | payer MEDICARE ==
[~2020-08-01] MED LIST changes: -METHACHOLINE KIT (J7674) INH ONE
--- NOTE | 2020-08-05 10:25 | REP ---
INDICATION: DIAGNOSING SOLITARY PULMONARY NODULE. There is also history of mantle cell lymphoma. COMPARISON: Comparison CT study of the chest June 21, 2020 shows a 9 mm nodule in the right middle lobe adjacent to the mediastinum.. Comparison PET-CT study is dated August 25, 2014. TECHNIQUE: Forty-seven minutes following the intravenous injection of a 8.45 mCi dose of F-18 FDG, three-dimensional PET scintigraphy is acquired from the skull base to the proximal thighs. Triplanar noncontrast CT scanning is acquired through the same anatomic range for attenuation correction, and image registration with scan parameters optimized to minimize radiation exposure to the patient. PET scintigraphy and CT datasets were fused and displayed on a workstation with multiplanar and projection display capability. FINDINGS: Head and neck soft tissues remain unremarkable. In the abdomen and pelvis there is normal distribution of FDG activity. No abnormal hypermetabolic uptake is seen in in the abdomen or pelvis. There is no discernible FDG accumulation in the small paramediastinal nodule in the right middle lobe. Maximum standard uptake value in this nodule is 1.51. No abnormal pulmonary parenchymal hypermetabolic uptake is seen. There is no abnormal hilar or mediastinal hypermetabolic uptake. No evidence of adenopathy seen. No abnormal adrenal uptake. IMPRESSION: Negative PET scintigraphy. The known 9 mm right middle lobe nodule does not show hypermetabolic uptake. It must be kept in mind that the nodule is small. Also, it is immediately adjacent to the vascular structures in the mediastinum. Short interval CT follow-up is recommended, 3-6 months. <Electronically signed by Pool Lundberg > 08/05/20 1022
== END ==
LOC: M PLARAD 11:19
PROVIDERS: ATTEND Internal Medicine Pulmonary Disease
DX: R91.1 Solitary pulmonary nodule (principal)
CPT/HCPCS: 78815; A9552

== ENCOUNTER → 2020-08-18 | Outpatient (CLI) | payer MEDICARE ==
--- NOTE | 2020-08-21 07:09 | ECHO ---
DATE OF PROCEDURE: 08/18/2020 Age: 80 Gender: Male Height: 67 inches Weight: 180 pounds Body surface area: 1.93 m2 PATIENT LOCATION: Outpatient. REFERRING PHYSICIAN: Davonte Burch M.D. INDICATION: Shortness of breath. MEASUREMENTS: 2D Measurements: RV 3.9 cm LV 3.8 cm Septum 1.1 cm Posterior wall 1.1 cm Aortic Root 4.2 cm Ascending aorta 3.8 cm LA 3.6 cm LVEF 65% Doppler Measurements: AV 1.0 m/s LVOT 1.0 m/s LVOT diameter 2.0 cm MV-E 80, A 100, E/A ratio 0.8 Early mitral deceleration time 240 msec E prime medial 6.4, A prime medial 9.4, E prime lateral 7.7 Average E/E prime ratio 11.3/PCWP - 16 mmHg PV 0.8 m/s Pulmonary artery acceleration time 100 msec RVSP 37 mmHg IVC 1.4 cm COMMENTS: Normal sinus rhythm/sinus bradycardia without intraventricular conduction disturbance. M-mode and two-dimensional echocardiography was performed with pulse, continuous wave, color flow, and tissue Doppler studies. Normal left ventricular size, wall thickness, and wall motion. Normal left atrial size with grade 1 LV diastolic dysfunction, but currently normal estimated mean left atrial pressure. Normal right heart chamber sizes and motion with Doppler sign of mild pulmonary hypertension. Normal IVC size against an elevated central venous pressure. Mildly dilated aortic root and proximal ascending aorta. Mild aortic valvular sclerosis without stenosis and only trace to very mild insufficiency. Mild degenerative changes of the mitral valve apparatus with only trace insufficiency. Normal appearing tricuspid valve with very mild insufficiency. No apparent intracardiac mass or pericardial effusion. MTDD
== END ==
LOC: M CARPUL 10:21
PROVIDERS: ATTEND Internal Medicine Pulmonary Disease
DX: R06.02 Shortness of breath (principal)

== ENCOUNTER → 2020-09-28 | Outpatient (REF) | payer MEDICARE ==
[2020-09-28 17:01] LABS: HEMOGLOBIN 13.5 g/dl (13.5-17.5); MEAN CORPUSCULAR HEMOGLOBIN 29.8 pg (27.0-33.0); MEAN CORPUSCULAR HGB CONC 32.1 g/dl (32.0-36.5); MEAN CORPUSCULAR VOLUME 92.7 fl (80.0-96.0); PLATELET COUNT, AUTOMATED 168 10^3/uL (150-450); RED BLOOD COUNT 4.53 10^6/uL (4.30-6.10)
[2020-09-28 17:22] LABS: WHITE BLOOD COUNT 35.1 10^3/uL (4.0-10.0)
[2020-09-28 17:28] LABS: ALBUMIN 3.9 GM/DL (3.2-5.2); ALT/SGPT 25 U/L (12-78); BILIRUBIN,TOTAL 0.8 MG/DL (0.2-1.0); BLOOD UREA NITROGEN 21 MG/DL (7-18); CALCIUM LEVEL 9.7 MG/DL (8.8-10.2); CARBON DIOXIDE LEVEL 29 MEQ/L (21-32); CHLORIDE LEVEL 104 MEQ/L (98-107); CREATININE FOR GFR 1.14 MG/DL (0.70-1.30); GLOMERULAR FILTRATION RATE > 60.0 (>35); GLUCOSE, FASTING 132 MG/DL (70-100); LDH LACTATE DEHYDROGENASE 143 U/L (87-241); POTASSIUM SERUM 4.3 MEQ/L (3.5-5.1); SODIUM LEVEL 140 MEQ/L (136-145); TOTAL PROTEIN 6.7 GM/DL (6.4-8.2)
[2020-09-28 19:10] LABS: ATYPICAL LYMPH 65 % (0-5); LYMPHOCYTES 12 % (16-44); MONOCYTES 7 % (0-5); NEUTROPHILS 16 % (28-66)
[2020-09-28 19:11] LABS: PLATELET ESTIMATE NORMAL (NORMAL)
== END ==
LOC: M LABDRAWC 16:06
PROVIDERS: ATTEND Internal Medicine Hematology & Oncology
DX: C83.10 Mantle cell lymphoma, unspecified site (principal)

== ENCOUNTER → 2020-10-19 | Outpatient (REF) | payer MEDICARE ==
[2020-10-19 12:12] LABS: ALT/SGPT 24 U/L (12-78); BLOOD UREA NITROGEN 22 MG/DL (7-18); CARBON DIOXIDE LEVEL 28 MEQ/L (21-32); CHLORIDE LEVEL 107 MEQ/L (98-107); CHOLESTEROL LEVEL 142 MG/DL (<200); CREATININE FOR GFR 1.02 MG/DL (0.70-1.30); FREE T4 0.89 NG/DL (0.76-1.46); GLOMERULAR FILTRATION RATE > 60.0 (>35); GLUCOSE, FASTING 102 MG/DL (70-100); HDL CHOLESTEROL 40 MG/DL (>40); LDL CHOLESTEROL 86 MG/DL (<100); NON-HDL-C 102 MG/DL; POTASSIUM SERUM 4.6 MEQ/L (3.5-5.1); SODIUM LEVEL 139 MEQ/L (136-145); TOTAL PROTEIN 6.6 GM/DL (6.4-8.2); TRIGLYCERIDES LEVEL 82 MG/DL (<150)
[2020-10-19 12:19] LABS: HEMATOCRIT 41.2 % (42.0-52.0); HEMOGLOBIN 13.4 g/dl (13.5-17.5); MEAN CORPUSCULAR HEMOGLOBIN 30.1 pg (27.0-33.0); MEAN CORPUSCULAR HGB CONC 32.5 g/dl (32.0-36.5); MEAN CORPUSCULAR VOLUME 92.6 fl (80.0-96.0); PLATELET COUNT, AUTOMATED 151 10^3/uL (150-450); RED BLOOD COUNT 4.45 10^6/uL (4.30-6.10)
[2020-10-19 12:41] LABS: HEMOGLOBIN A1c 6.2 %
[2020-10-19 13:08] LABS: WHITE BLOOD COUNT 36.6 10^3/uL (4.0-10.0)
[2020-10-19 13:31] LABS: ATYPICAL LYMPH 58 % (0-5); EOSINOPHILS 2 % (0-3); LYMPHOCYTES 25 % (16-44); MONOCYTES 5 % (0-5); NEUTROPHILS 10 % (28-66); PLATELET ESTIMATE NORMAL (NORMAL)
[2020-10-19 13:32] LABS: ANISOCYTOSIS 1+; POIKILOCYTOSIS 1+
== END ==
LOC: M SFHCCLAY 06:55
PROVIDERS: ATTEND Family Medicine
DX: C91.10 Chronic lymphocytic leukemia of B-cell type not having achieved remission (principal); E74.9 Disorder of carbohydrate metabolism, unspecified; E89.0 Postprocedural hypothyroidism; E78.2 Mixed hyperlipidemia

== ENCOUNTER → 2020-12-01 | Outpatient (CLI) | payer MEDICARE ==
[~2020-12-01] MED LIST changes: +COVI100V IM; +ECOT81TA5 PO; +FLUTISP; +VITA200016 PO
--- NOTE | 2020-12-01 10:04 | REP ---
INDICATION: SOLITARY PULMONARY NODULE. COMPARISON: Comparison CT study June 21, 2020.. TECHNIQUE: Helical scanning is acquired. 3 mm axial images are generated. Coronal and sagittal MPR and coronal MIP images are generated. FINDINGS: Previously noted 9 mm right middle lobe nodule is again seen adjacent to the mediastinum unchanged in the interval since the June 21, 2020 study. On coronal MPR images this nodule is seen to measure 11 mm in greatest diameter. This is unchanged. There is some adjacent fibrosis and atelectasis in the right middle lobe with 2 or 3 air bronchograms unchanged. No new pulmonary nodule is seen. Mild bilateral lower lobe linear fibrotic changes are seen. A very small hiatal hernia is noted. No pleural or pericardial effusion is seen. Vascular calcification is observed. Normal adrenal glands are again noted. IMPRESSION: Stable 11 mm nodule right middle lobe unchanged in the interval since the June 21, 2020 study. Consider follow-up study in 6 months. <Electronically signed by Pool Lundberg > 12/01/20 1000
== END ==
LOC: M RAD 08:49
PROVIDERS: ATTEND Internal Medicine Pulmonary Disease
DX: R91.1 Solitary pulmonary nodule (principal)

== ENCOUNTER → 2021-05-01 | Outpatient (REF) | payer MEDICARE ==
[~2021-05-01] MED LIST changes: +RA T500C2 PO
[2021-05-01 11:04] LABS: HEMATOCRIT 41.1 % (42.0-52.0); HEMOGLOBIN 13.1 g/dl (13.5-17.5); MEAN CORPUSCULAR HEMOGLOBIN 30.2 pg (27.0-33.0); MEAN CORPUSCULAR HGB CONC 31.9 g/dl (32.0-36.5); MEAN CORPUSCULAR VOLUME 94.7 fl (80.0-96.0); PLATELET COUNT, AUTOMATED 160 10^3/uL (150-450); RED BLOOD COUNT 4.34 10^6/uL (4.30-6.10)
[2021-05-01 11:17] LABS: WHITE BLOOD COUNT 46.2 10^3/uL (4.0-10.0)
[2021-05-01 11:36] LABS: ATYPICAL LYMPH 12 % (0-5); BLAST CELLS 1 % (0-0); LYMPHOCYTES 69 % (16-44); MONOCYTES 5 % (0-5); NEUTROPHILS 13 % (28-66)
[2021-05-01 11:38] LABS: PLATELET ESTIMATE NORMAL (NORMAL)
[2021-05-01 11:54] LABS: ALBUMIN 3.7 GM/DL (3.2-5.2); ALT/SGPT 29 U/L (12-78); BILIRUBIN,TOTAL 0.9 MG/DL (0.2-1.0); BLOOD UREA NITROGEN 21 MG/DL (7-18); CALCIUM LEVEL 9.4 MG/DL (8.8-10.2); CARBON DIOXIDE LEVEL 28 MEQ/L (21-32); CHLORIDE LEVEL 110 MEQ/L (98-107); CREATININE FOR GFR 1.08 MG/DL (0.70-1.30); FREE T4 0.86 NG/DL (0.76-1.46); GLOMERULAR FILTRATION RATE > 60.0 (>35); GLUCOSE, FASTING 124 MG/DL (70-100); POTASSIUM SERUM 4.8 MEQ/L (3.5-5.1); SODIUM LEVEL 143 MEQ/L (136-145); TOTAL PROTEIN 6.3 GM/DL (6.4-8.2)
== END ==
LOC: M SFHCCLAY 06:57
PROVIDERS: ATTEND Family Medicine
DX: C83.10 Mantle cell lymphoma, unspecified site (principal); C91.10 Chronic lymphocytic leukemia of B-cell type not having achieved remission; E74.9 Disorder of carbohydrate metabolism, unspecified; E89.0 Postprocedural hypothyroidism

== ENCOUNTER → 2021-06-11 | Outpatient (CLI) | payer MEDICARE ==
--- NOTE | 2021-06-11 14:43 | REP ---
INDICATION: SOLITARY PULMONARY NODULE. COMPARISON: 12/01/2020, 06/21/2020 TECHNIQUE: Noncontrast scanning through the chest with coronal and sagittal reconstructions. FINDINGS: Previously noted paramediastinal nodule in the subpleural medial segment right middle lobe is again seen measures 9.8 x 8.2 mm by my direct measurement today comparing to 10.6 by 7.8 mm on the previous study. It is certainly no larger. In the right middle lobe there are small foci of adjacent atelectasis or fibrosis with the 2 or 3 dilated bronchi which are stable in appearance. Mild cylindrical bronchiectatic changes seen in all lobes. There is no pleural effusion, pleural based mass or acute infiltrate. No other nodules or masses are defined. There is no pneumothorax or pneumomediastinum. Some minor basilar fibrotic changes are seen. There is a small hiatal hernia evident. Heart is not enlarged. No pericardial thickening or effusion. There is atherosclerotic calcification in some coronary arteries, aortic arch and descending aorta to a minimal degree. No pathologic sized mediastinal or hilar adenopathy. Some thoracic spondylosis noted and unchanged no destructive lesion in the bony chest. Degenerative changes of both shoulders. The upper abdomen shows liver and spleen in part with some a prominent left hepatic lobe but no gross hepatomegaly I suspect some mild splenomegaly with the spleen is not visible in its entirety, maximum transverse diameter 13.3 cm. Adrenal glands intact. That portion of gallbladder and pancreas included were unremarkable. Upper poles of kidneys intact. Diverticulosis scattered in the transverse colon. IMPRESSION: 1. Paramediastinal noncalcified nodule in the medial segment right middle lobe is again seen and essentially unchanged, certainly no larger by my direct measurements today 9.8 x 8.2 mm, previously 10.6 x 7.8 mm. No other lung nodules or masses. There is some cylindrical bronchiectatic change and some stable basilar fibrotic change including in the medial segment of the right middle lobe near this nodule. 2. No other significant or acute findings. Recommend follow-up CT chest in 1 year which would be 2 years from the time of the original examination to confirm stability over adequate time frame per the [employer] recommendations. <Electronically signed by Josh Vinson > 06/11/21 [id number]
== END ==
LOC: M PLAIMG 10:31
PROVIDERS: ATTEND Internal Medicine Pulmonary Disease
DX: R91.1 Solitary pulmonary nodule (principal); I25.10 Atherosclerotic heart disease of native coronary artery without angina pectoris; I70.0 Atherosclerosis of aorta; K57.30 Diverticulosis of large intestine without perforation or abscess without bleeding; J84.10 Pulmonary fibrosis, unspecified

== ENCOUNTER → 2021-06-22 | Outpatient (REF) | payer MEDICARE | LOC: M SFHCCLAY 09:38 | PROVIDERS: ATTEND Nurse Practitioner Women's Health | DX: R97.20 Elevated prostate specific antigen [PSA] (principal) ==

== ENCOUNTER → 2021-09-19 | Outpatient (REF) | payer MEDICARE | LOC: M SMT PRO 09:14 | PROVIDERS: ATTEND Urology | DX: R97.20 Elevated prostate specific antigen [PSA] (principal) ==

== ENCOUNTER → 2021-09-24 | Outpatient (REF) | payer MEDICARE | LOC: M SFHCDERM 16:56 | PROVIDERS: ATTEND Physician Assistant | DX: L82.1 Other seborrheic keratosis (principal) ==

== ENCOUNTER → 2021-10-17 | Outpatient (REF) | payer MEDICARE ==
[2021-10-17 12:02] LABS: HEMATOCRIT 41.8 % (42.0-52.0); HEMOGLOBIN 13.1 g/dl (13.5-17.5); MEAN CORPUSCULAR HGB CONC 31.3 g/dl (32.0-36.5); MEAN CORPUSCULAR VOLUME 92.5 fl (80.0-96.0); PLATELET COUNT, AUTOMATED 134 10^3/uL (150-450); RED BLOOD COUNT 4.52 10^6/uL (4.30-6.10)
[2021-10-17 12:32] LABS: ALT/SGPT 24 U/L (12-78); BLOOD UREA NITROGEN 20 MG/DL (7-18); CALCIUM LEVEL 9.9 MG/DL (8.8-10.2); CARBON DIOXIDE LEVEL 30 MEQ/L (21-32); CHLORIDE LEVEL 111 MEQ/L (98-107); CHOLESTEROL LEVEL 157 MG/DL (<200); CHOLESTEROL RISK RATIO 4.131 (<5); CREATININE FOR GFR 1.06 MG/DL (0.70-1.30); FREE T4 0.95 NG/DL (0.76-1.46); GLOMERULAR FILTRATION RATE > 60.0 (>35); GLUCOSE, FASTING 112 MG/DL (70-100); HDL CHOLESTEROL 38 MG/DL (>40); LDL CHOLESTEROL 103 MG/DL (<100); NON-HDL-C 119 MG/DL; POTASSIUM SERUM 5.4 MEQ/L (3.5-5.1); PROSTATIC SPECIFIC AG MONITOR 8.41 NG/ML (< 4.00); SODIUM LEVEL 143 MEQ/L (136-145); TOTAL PROTEIN 6.7 GM/DL (6.4-8.2); TRIGLYCERIDES LEVEL 82 MG/DL (<150)
[2021-10-17 12:41] LABS: HEMOGLOBIN A1c 6.5 %
[2021-10-17 13:22] LABS: WHITE BLOOD COUNT 46.3 10^3/uL (4.0-10.0)
[2021-10-17 13:40] LABS: ATYPICAL LYMPH 30 % (0-5); LYMPHOCYTES 59 % (16-44); MONOCYTES 4 % (0-5); NEUTROPHILS 7 % (28-66)
[2021-10-17 13:41] LABS: PLATELET ESTIMATE DECREASED (NORMAL)
== END ==
LOC: M SFHCCLAY 06:51
PROVIDERS: ATTEND Family Medicine
DX: C91.10 Chronic lymphocytic leukemia of B-cell type not having achieved remission (principal); E78.2 Mixed hyperlipidemia; E89.0 Postprocedural hypothyroidism; E74.9 Disorder of carbohydrate metabolism, unspecified; R97.20 Elevated prostate specific antigen [PSA]

== ENCOUNTER → 2022-03-25 | Outpatient (CLI) | payer MEDICARE ==
[~2022-03-25] MED LIST changes: +GASTROGRAFIN SOLUTION 30ML (Q9963) As Ordered ONE; +ISOVUE-370 76% 100ML VIAL As Ordered ONE
== END ==
LOC: M RAD 12:36
PROVIDERS: ATTEND Internal Medicine
DX: C91.90 Lymphoid leukemia, unspecified not having achieved remission (principal); R16.1 Splenomegaly, not elsewhere classified; N40.0 Benign prostatic hyperplasia without lower urinary tract symptoms; R91.1 Solitary pulmonary nodule; J47.9 Bronchiectasis, uncomplicated; M50.30 Other cervical disc degeneration, unspecified cervical region; J34.1 Cyst and mucocele of nose and nasal sinus; M48.062 Spinal stenosis, lumbar region with neurogenic claudication; M47.812 Spondylosis without myelopathy or radiculopathy, cervical region; R93.0 Abnormal findings on diagnostic imaging of skull and head, not elsewhere classified
CPT/HCPCS: 70491; 71260; 74177; Q9963; Q9967

== ENCOUNTER → 2022-09-06 | Outpatient (REF) | payer MEDICARE ==
[~2022-09-06] MED LIST changes: -GASTROGRAFIN SOLUTION 30ML (Q9963) As Ordered ONE; -ISOVUE-370 76% 100ML VIAL As Ordered ONE
[2022-09-06 11:40] LABS: LDH LACTATE DEHYDROGENASE 162 U/L (120-246)
[2022-09-06 11:41] LABS: ALKALINE PHOSPHATASE 71 U/L (46-116); ALT/SGPT 20 U/L (7.0-40); AST/SGOT 22 U/L (<34); BILIRUBIN,TOTAL 1.1 MG/DL (0.3-1.2); BLOOD UREA NITROGEN 21 MG/DL (9-23); CALCIUM LEVEL 9.5 MG/DL (8.3-10.6); CARBON DIOXIDE LEVEL 30 MMOL/L (20-31); CHLORIDE LEVEL 102 MMOL/L (98-107); CREATININE FOR GFR 1.03 MG/DL (0.70-1.30); GLOMERULAR FILTRATION RATE > 60.0 (>35); GLUCOSE, FASTING 116 MG/DL (74-106); POTASSIUM SERUM 4.5 MMOL/L (3.5-5.1); SODIUM LEVEL 137 MMOL/L (136-145); TOTAL PROTEIN 6.7 G/DL (5.7-8.2)
[2022-09-06 11:45] LABS: BASO # 0.1 10^3/uL (0.0-0.2); BASO % 0.1 % (0.0-1.0); EOS # 0.2 10^3/uL (0.0-0.5); EOS % 0.2 % (0.0-3.0); HEMATOCRIT 41.1 % (42.0-52.0); HEMOGLOBIN 12.8 g/dl (13.5-17.5); LYMPH # 69.9 10^3/uL (1.5-5.0); LYMPH % 90.6 % (24.0-44.0); MEAN CORPUSCULAR HGB CONC 31.1 g/dl (32.0-36.5); MONO % 3.4 % (2.0-8.0); NEUTROPHILS # 4.3 10^3/uL (1.5-8.5); NEUTROPHILS % 5.6 % (36.0-66.0); PLATELET COUNT, AUTOMATED 141 10^3/uL (150-450); RED BLOOD COUNT 4.42 10^6/uL (4.30-6.10)
[2022-09-06 11:48] LABS: MONO # 2.6 10^3/uL (0.0-0.8); WHITE BLOOD COUNT 77.2 10^3/uL (4.0-10.0)
== END ==
LOC: M LABDRAWC 11:05
PROVIDERS: ATTEND Internal Medicine Medical Oncology
DX: C91.10 Chronic lymphocytic leukemia of B-cell type not having achieved remission (principal)

== ENCOUNTER → 2022-10-09 | Outpatient (REF) | payer MEDICARE ==
[2022-10-09 11:24] LABS: HEMATOCRIT 42.8 % (42.0-52.0); HEMOGLOBIN 13.2 g/dl (13.5-17.5); MEAN CORPUSCULAR HEMOGLOBIN 29.2 pg (27.0-33.0); MEAN CORPUSCULAR HGB CONC 30.8 g/dl (32.0-36.5); MEAN CORPUSCULAR VOLUME 94.7 fl (80.0-96.0); PLATELET COUNT, AUTOMATED 136 10^3/uL (150-450); RED BLOOD COUNT 4.52 10^6/uL (4.30-6.10)
[2022-10-09 11:55] LABS: PROSTATIC SPECIFIC AG MONITOR 5.07 NG/ML (< 4.00)
[2022-10-09 11:58] LABS: ALKALINE PHOSPHATASE 66 U/L (46-116); ALT/SGPT 22 U/L (7.0-40); AST/SGOT 20 U/L (<34); BILIRUBIN,TOTAL 1.1 MG/DL (0.3-1.2); BLOOD UREA NITROGEN 23 MG/DL (9-23); CALCIUM LEVEL 9.8 MG/DL (8.3-10.6); CARBON DIOXIDE LEVEL 30 MMOL/L (20-31); CHLORIDE LEVEL 105 MMOL/L (98-107); CHOLESTEROL LEVEL 155 MG/DL (<200); CHOLESTEROL RISK RATIO 4.49 (<5); CREATININE FOR GFR 1.13 MG/DL (0.70-1.30); GLOMERULAR FILTRATION RATE > 60.0 (>35); GLUCOSE, FASTING 110 MG/DL (74-106); HDL CHOLESTEROL 34.5 MG/DL (>40); LDL CHOLESTEROL 103.9 MG/DL (<100); NON-HDL-C 121 MG/DL; SODIUM LEVEL 141 MMOL/L (136-145); TOTAL PROTEIN 6.4 G/DL (5.7-8.2); TRIGLYCERIDES LEVEL 83 MG/DL (<150)
[2022-10-09 11:59] LABS: FREE T4 1.16 NG/DL (0.89-1.76); THYROID STIMULATING HORMONE 3.382 uIU/ML (0.55-4.78)
[2022-10-09 12:26] LABS: HEMOGLOBIN A1c 5.8 % (4.0-6.0)
[2022-10-09 12:28] LABS: ATYPICAL LYMPH 30 % (0-5); LYMPHOCYTES 55 % (16-44); MONOCYTES 8 % (0-5); NEUTROPHILS 7 % (28-66)
[2022-10-09 12:29] LABS: ANISOCYTOSIS 1+; BURR CELLS 1+; PLATELET ESTIMATE NORMAL (NORMAL)
[2022-10-09 12:30] LABS: SMUDGE CELLS 1+
[2022-10-09 12:31] LABS: OVALOCYTES 1+
== END ==
LOC: M SFHCCLAY 07:07
PROVIDERS: ATTEND Family Medicine
DX: C83.10 Mantle cell lymphoma, unspecified site (principal); C91.10 Chronic lymphocytic leukemia of B-cell type not having achieved remission; E89.0 Postprocedural hypothyroidism; E74.9 Disorder of carbohydrate metabolism, unspecified; E78.2 Mixed hyperlipidemia; R97.20 Elevated prostate specific antigen [PSA]

== ENCOUNTER → 2022-10-23 | Outpatient (REF) | payer MEDICARE ==
[2022-10-23 17:31] LABS: BASO # 0.3 10^3/uL (0.0-0.2); BASO % 0.4 % (0.0-1.0); EOS # 0.2 10^3/uL (0.0-0.5); EOS % 0.2 % (0.0-3.0); HEMATOCRIT 39.3 % (42.0-52.0); HEMOGLOBIN 12.4 g/dl (13.5-17.5); LYMPH # 57.8 10^3/uL (1.5-5.0); MEAN CORPUSCULAR HEMOGLOBIN 29.9 pg (27.0-33.0); MEAN CORPUSCULAR HGB CONC 31.6 g/dl (32.0-36.5); MEAN CORPUSCULAR VOLUME 94.7 fl (80.0-96.0); MONO % 10.7 % (2.0-8.0); NEUTROPHILS # 3.9 10^3/uL (1.5-8.5); NEUTROPHILS % 5.6 % (36.0-66.0); PLATELET COUNT, AUTOMATED 126 10^3/uL (150-450); RED BLOOD COUNT 4.15 10^6/uL (4.30-6.10)
[2022-10-23 17:33] LABS: MONO # 7.4 10^3/uL (0.0-0.8); WHITE BLOOD COUNT 69.6 10^3/uL (4.0-10.0)
[2022-10-23 18:08] LABS: LDH LACTATE DEHYDROGENASE 168 U/L (120-246)
[2022-10-23 18:09] LABS: ALBUMIN 3.9 G/DL (3.2-5.2); ALKALINE PHOSPHATASE 61 U/L (46-116); ALT/SGPT 19 U/L (7.0-40); AST/SGOT 18 U/L (<34); BILIRUBIN,TOTAL 0.8 MG/DL (0.3-1.2); BLOOD UREA NITROGEN 19 MG/DL (9-23); CALCIUM LEVEL 9.3 MG/DL (8.3-10.6); CARBON DIOXIDE LEVEL 28 MMOL/L (20-31); CHLORIDE LEVEL 106 MMOL/L (98-107); CREATININE FOR GFR 0.95 MG/DL (0.70-1.30); GLOMERULAR FILTRATION RATE > 60.0 (>35); GLUCOSE, FASTING 136 MG/DL (74-106); SODIUM LEVEL 139 MMOL/L (136-145); TOTAL PROTEIN 6.2 G/DL (5.7-8.2)
== END ==
LOC: M LABDRAWC 16:54
PROVIDERS: ATTEND Internal Medicine Medical Oncology
DX: C91.10 Chronic lymphocytic leukemia of B-cell type not having achieved remission (principal)

== ENCOUNTER → 2022-12-02 | Outpatient (REF) | payer MEDICARE ==
[~2022-12-02] MED LIST changes: +FLUT50SP17; -FLUTISP
[2022-12-02 12:10] LABS: BASO # 0.1 10^3/uL (0.0-0.2); BASO % 0.1 % (0.0-1.0); EOS # 0.2 10^3/uL (0.0-0.5); EOS % 0.2 % (0.0-3.0); HEMATOCRIT 39.1 % (42.0-52.0); HEMOGLOBIN 12.4 g/dl (13.5-17.5); LYMPH # 61.7 10^3/uL (1.5-5.0); LYMPH % 84.9 % (24.0-44.0); MEAN CORPUSCULAR HEMOGLOBIN 30.1 pg (27.0-33.0); MEAN CORPUSCULAR HGB CONC 31.7 g/dl (32.0-36.5); MEAN CORPUSCULAR VOLUME 94.9 fl (80.0-96.0); MONO % 8.2 % (2.0-8.0); NEUTROPHILS # 4.6 10^3/uL (1.5-8.5); NEUTROPHILS % 6.4 % (36.0-66.0); PLATELET COUNT, AUTOMATED 127 10^3/uL (150-450); RED BLOOD COUNT 4.12 10^6/uL (4.30-6.10)
[2022-12-02 12:11] LABS: LDH LACTATE DEHYDROGENASE 189 U/L (120-246)
[2022-12-02 12:13] LABS: ALBUMIN 3.8 G/DL (3.2-5.2); ALKALINE PHOSPHATASE 65 U/L (46-116); ALT/SGPT 22 U/L (7.0-40); AST/SGOT 21 U/L (<34); BLOOD UREA NITROGEN 20 MG/DL (9-23); CALCIUM LEVEL 9.2 MG/DL (8.3-10.6); CARBON DIOXIDE LEVEL 28 MMOL/L (20-31); CHLORIDE LEVEL 108 MMOL/L (98-107); CREATININE FOR GFR 1.02 MG/DL (0.70-1.30); GLOMERULAR FILTRATION RATE > 60.0 (>35); GLUCOSE, FASTING 126 MG/DL (74-106); POTASSIUM SERUM 4.1 MMOL/L (3.5-5.1); SODIUM LEVEL 142 MMOL/L (136-145); TOTAL PROTEIN 6.3 G/DL (5.7-8.2)
[2022-12-02 12:16] LABS: WHITE BLOOD COUNT 72.6 10^3/uL (4.0-10.0)
== END ==
LOC: M LABDRAWC 11:18
PROVIDERS: ATTEND Internal Medicine Medical Oncology
DX: C91.10 Chronic lymphocytic leukemia of B-cell type not having achieved remission (principal)

== ENCOUNTER → 2023-01-13 | Outpatient (REF) | payer MEDICARE ==
[2023-01-13 11:46] LABS: BASO # 0.4 10^3/uL (0.0-0.2); BASO % 0.5 % (0.0-1.0); EOS # 0.1 10^3/uL (0.0-0.5); EOS % 0.1 % (0.0-3.0); HEMATOCRIT 41.4 % (42.0-52.0); LYMPH # 70.3 10^3/uL (1.5-5.0); LYMPH % 86.7 % (24.0-44.0); MEAN CORPUSCULAR HEMOGLOBIN 29.9 pg (27.0-33.0); MEAN CORPUSCULAR HGB CONC 31.4 g/dl (32.0-36.5); MEAN CORPUSCULAR VOLUME 95.2 fl (80.0-96.0); MONO % 7.5 % (2.0-8.0); NEUTROPHILS # 4.1 10^3/uL (1.5-8.5); NEUTROPHILS % 5.1 % (36.0-66.0); PLATELET COUNT, AUTOMATED 127 10^3/uL (150-450); RED BLOOD COUNT 4.35 10^6/uL (4.30-6.10)
[2023-01-13 11:50] LABS: LDH LACTATE DEHYDROGENASE 167 U/L (120-246)
[2023-01-13 11:51] LABS: ALBUMIN 3.9 G/DL (3.2-5.2); ALKALINE PHOSPHATASE 62 U/L (46-116); ALT/SGPT 19 U/L (7.0-40); AST/SGOT 12 U/L (<34); BILIRUBIN,TOTAL 1.1 MG/DL (0.3-1.2); BLOOD UREA NITROGEN 23 MG/DL (9-23); CALCIUM LEVEL 8.9 MG/DL (8.3-10.6); CARBON DIOXIDE LEVEL 29 MMOL/L (20-31); CHLORIDE LEVEL 106 MMOL/L (98-107); CREATININE FOR GFR 1.06 MG/DL (0.70-1.30); GLOMERULAR FILTRATION RATE > 60.0 (>35); GLUCOSE, FASTING 134 MG/DL (74-106); POTASSIUM SERUM 4.1 MMOL/L (3.5-5.1); SODIUM LEVEL 141 MMOL/L (136-145); TOTAL PROTEIN 6.3 G/DL (5.7-8.2)
[2023-01-13 11:58] LABS: WHITE BLOOD COUNT 81.1 10^3/uL (4.0-10.0)
== END ==
LOC: M LABDRAWC 11:14
PROVIDERS: ATTEND Internal Medicine Medical Oncology
DX: C91.10 Chronic lymphocytic leukemia of B-cell type not having achieved remission (principal)

== ENCOUNTER 2023-08-18 13:40 | Emergency (ER) | payer MEDICARE, OTHER ==
[~2023-08-18] VITALS: Ht 170.2 cm; Wt 83.4 kg
[~2023-08-18 13:40] MED LIST changes: -FLUT50SP17; +FLUTISP
[2023-08-18 14:55] LABS: HEMATOCRIT 37.7 % (42.0-52.0); HEMOGLOBIN 12.1 g/dl (13.5-17.5); MEAN CORPUSCULAR HEMOGLOBIN 29.6 pg (27.0-33.0); MEAN CORPUSCULAR HGB CONC 32.1 g/dl (32.0-36.5); MEAN CORPUSCULAR VOLUME 92.2 fl (80.0-96.0); PLATELET COUNT, AUTOMATED 142 10^3/uL (150-450); RED BLOOD COUNT 4.09 10^6/uL (4.30-6.10)
[2023-08-18 15:04] LABS: INR 1.06; PROTHROMBIN TIME 13.4 SECONDS (12.5-14.5)
[2023-08-18 15:05] LABS: PARTIAL THROMBOPLASTIN TIME 23.8 SECONDS (24.8-34.2)
[2023-08-18 15:08] LABS: WHITE BLOOD COUNT 76.7 10^3/uL (4.0-10.0)
[2023-08-18 15:17] LABS: BLOOD UREA NITROGEN 22 MG/DL (9-23); CALCIUM LEVEL 9.3 MG/DL (8.3-10.6); CARBON DIOXIDE LEVEL 28 MMOL/L (20-31); CHLORIDE LEVEL 106 MMOL/L (98-107); CK-MB VALUE MASS < 1.0 NG/ML (<3.6); CREATININE FOR GFR 1.02 MG/DL (0.70-1.30); GLOMERULAR FILTRATION RATE > 60.0 (>35); GLUCOSE, FASTING 133 MG/DL (74-106); POTASSIUM SERUM 4.2 MMOL/L (3.5-5.1); SODIUM LEVEL 138 MMOL/L (136-145)
[2023-08-18 15:18] LABS: CPK CREATINE PHOSPHOKINASE 34 U/L (46-171); MB/CK RELATIVE INDEX 2.94 (< OR =4)
[2023-08-18 15:31] LABS: ATYPICAL LYMPH 17 % (0-5); LYMPHOCYTES 71 % (16-44); MONOCYTES 1 % (0-5); NEUTROPHILS 11 % (28-66); PLATELET ESTIMATE NORMAL (NORMAL)
[2023-08-18 15:33] LABS: SMUDGE CELLS 1+
[2023-08-18] MEDS ORDERED: MECL-209 PO (22:01)
[2023-08-18] MEDS ORDERED: MECLIZINE 25 MG TABLET PO ONE (22:05)
[2023-08-18 22:11] VITALS: BP 158/81; TEMP 98; O2SAT 96
== END 2023-08-18 22:19 | disposition home or self-care (01) ==
LOC: M ED 13:40
DX: H81.4 Vertigo of central origin (principal); E03.9 Hypothyroidism, unspecified; I10 Essential (primary) hypertension; Z79.02 Long term (current) use of antithrombotics/antiplatelets; Z79.899 Other long term (current) drug therapy

== ENCOUNTER → 2023-08-29 | Outpatient (REF) | payer OTHER ==
[~2023-08-29] MED LIST changes: +MECL-209 PO
[2023-08-29 13:22] LABS: BASO # 0.1 10^3/uL (0.0-0.2); BASO % 0.1 % (0.0-1.0); EOS # 0.2 10^3/uL (0.0-0.5); EOS % 0.2 % (0.0-3.0); HEMATOCRIT 39.2 % (42.0-52.0); HEMOGLOBIN 12.2 g/dl (13.5-17.5); LYMPH # 85.2 10^3/uL (1.5-5.0); LYMPH % 87.5 % (24.0-44.0); MEAN CORPUSCULAR HEMOGLOBIN 29.3 pg (27.0-33.0); MEAN CORPUSCULAR HGB CONC 31.1 g/dl (32.0-36.5); PLATELET COUNT, AUTOMATED 127 10^3/uL (150-450); RED BLOOD COUNT 4.17 10^6/uL (4.30-6.10)
[2023-08-29 13:24] LABS: ALBUMIN 3.6 G/DL (3.2-5.2); ALKALINE PHOSPHATASE 73 U/L (46-116); ALT/SGPT 18 U/L (7.0-40); AST/SGOT 15 U/L (<34); BILIRUBIN,TOTAL 0.9 MG/DL (0.3-1.2); BLOOD UREA NITROGEN 21 MG/DL (9-23); CALCIUM LEVEL 9.2 MG/DL (8.3-10.6); CARBON DIOXIDE LEVEL 30 MMOL/L (20-31); CHLORIDE LEVEL 106 MMOL/L (98-107); CREATININE FOR GFR 1.09 MG/DL (0.70-1.30); GLOMERULAR FILTRATION RATE > 60.0 (>35); GLUCOSE, FASTING 150 MG/DL (74-106); MONO # 6.8 10^3/uL (0.0-0.8); SODIUM LEVEL 140 MMOL/L (136-145); TOTAL PROTEIN 6.2 G/DL (5.7-8.2); WHITE BLOOD COUNT 97.4 10^3/uL (4.0-10.0)
== END ==
LOC: M LABDRAWC 12:46
PROVIDERS: ATTEND Internal Medicine Medical Oncology
DX: C95.10 Chronic leukemia of unspecified cell type not having achieved remission (principal)

== ENCOUNTER → 2023-11-26 | Outpatient (CLI) | payer OTHER ==
[~2023-11-26] MED LIST changes: +THERTAB52 PO
== END ==
LOC: M CLY 14:49
PROVIDERS: ATTEND Physician Assistant Medical
DX: I51.7 Cardiomegaly (principal)

== ENCOUNTER → 2023-12-02 | Outpatient (REF) | payer OTHER ==
[2023-12-02 11:35] LABS: ALBUMIN 3.6 G/DL (3.2-5.2); ALKALINE PHOSPHATASE 87 U/L (46-116); ALT/SGPT 18 U/L (7.0-40); AST/SGOT 21 U/L (<34); BILIRUBIN,TOTAL 0.7 MG/DL (0.3-1.2); BLOOD UREA NITROGEN 18 MG/DL (9-23); CALCIUM LEVEL 9.6 MG/DL (8.3-10.6); CARBON DIOXIDE LEVEL 28 MMOL/L (20-31); CHLORIDE LEVEL 104 MMOL/L (98-107); CHOLESTEROL LEVEL 132 MG/DL (<200); CHOLESTEROL RISK RATIO 5.86 (<5); CREATININE FOR GFR 1.16 MG/DL (0.70-1.30); FREE T4 0.99 NG/DL (0.89-1.76); GLOMERULAR FILTRATION RATE > 60.0 (>35); GLUCOSE, FASTING 110 MG/DL (74-106); HDL CHOLESTEROL 22.5 MG/DL (>40); LDL CHOLESTEROL 87.5 MG/DL (<100); NON-HDL-C 109.5 MG/DL; POTASSIUM SERUM 4.3 MMOL/L (3.5-5.1); SODIUM LEVEL 139 MMOL/L (136-145); THYROID STIMULATING HORMONE 3.758 uIU/ML (0.55-4.78); TOTAL PROTEIN 6.2 G/DL (5.7-8.2); TRIGLYCERIDES LEVEL 110 MG/DL (<150)
[2023-12-02 11:38] LABS: HEMOGLOBIN A1c 5.1 % (4.0-6.0)
[2023-12-02 12:09] LABS: PROCALCITONIN 0.07 ng/ml
== END ==
LOC: M SFHCCLAY 07:13
PROVIDERS: ATTEND Physician Assistant Medical
DX: C91.10 Chronic lymphocytic leukemia of B-cell type not having achieved remission (principal); J18.9 Pneumonia, unspecified organism; E89.0 Postprocedural hypothyroidism; I51.7 Cardiomegaly; E74.9 Disorder of carbohydrate metabolism, unspecified; E78.2 Mixed hyperlipidemia; Z79.899 Other long term (current) drug therapy; R06.2 Wheezing

== ENCOUNTER → 2023-12-02 | Outpatient (REF) | payer OTHER ==
[2023-12-02 11:14] LABS: BASO # 0.2 10^3/uL (0.0-0.2); BASO % 0.2 % (0.0-1.0); HEMATOCRIT 38.8 % (42.0-52.0); HEMOGLOBIN 12.2 g/dl (13.5-17.5); LYMPH # 78.8 10^3/uL (1.5-5.0); LYMPH % 82.5 % (24.0-44.0); MEAN CORPUSCULAR HEMOGLOBIN 29.1 pg (27.0-33.0); MEAN CORPUSCULAR HGB CONC 31.4 g/dl (32.0-36.5); MEAN CORPUSCULAR VOLUME 92.6 fl (80.0-96.0); MONO % 11.9 % (2.0-8.0); NEUTROPHILS % 5.2 % (36.0-66.0); PLATELET COUNT, AUTOMATED 128 10^3/uL (150-450); RED BLOOD COUNT 4.19 10^6/uL (4.30-6.10)
[2023-12-02 11:30] LABS: LDH LACTATE DEHYDROGENASE 199 U/L (120-246)
[2023-12-02 11:31] LABS: ALBUMIN 3.6 G/DL (3.2-5.2); ALKALINE PHOSPHATASE 86 U/L (46-116); ALT/SGPT 18 U/L (7.0-40); AST/SGOT 22 U/L (<34); BILIRUBIN,TOTAL 0.8 MG/DL (0.3-1.2); BLOOD UREA NITROGEN 18 MG/DL (9-23); CALCIUM LEVEL 9.7 MG/DL (8.3-10.6); CARBON DIOXIDE LEVEL 29 MMOL/L (20-31); CHLORIDE LEVEL 104 MMOL/L (98-107); CREATININE FOR GFR 1.17 MG/DL (0.70-1.30); GLOMERULAR FILTRATION RATE > 60.0 (>35); GLUCOSE, FASTING 110 MG/DL (74-106); POTASSIUM SERUM 4.3 MMOL/L (3.5-5.1); SODIUM LEVEL 139 MMOL/L (136-145); TOTAL PROTEIN 6.1 G/DL (5.7-8.2); WHITE BLOOD COUNT 95.5 10^3/uL (4.0-10.0)
[2023-12-02 11:32] LABS: MONO # 11.3 10^3/uL (0.0-0.8)
== END ==
LOC: M LABDRAWC 10:54
PROVIDERS: ATTEND Internal Medicine Medical Oncology
DX: C91.10 Chronic lymphocytic leukemia of B-cell type not having achieved remission (principal)

== ENCOUNTER → 2023-12-24 | Outpatient (CLI) | payer OTHER | LOC: M RAD 10:10 | PROVIDERS: ATTEND Internal Medicine Medical Oncology | DX: R16.1 Splenomegaly, not elsewhere classified (principal) ==

== ENCOUNTER → 2024-01-15 | Outpatient (REF) | payer OTHER ==
[2024-01-15 11:24] LABS: BASO # 0.3 10^3/uL (0.0-0.2); BASO % 0.2 % (0.0-1.0); EOS # 0.1 10^3/uL (0.0-0.5); EOS % 0.1 % (0.0-3.0); HEMATOCRIT 39.1 % (42.0-52.0); HEMOGLOBIN 12.1 g/dl (13.5-17.5); LYMPH # 97.3 10^3/uL (1.5-5.0); MEAN CORPUSCULAR HEMOGLOBIN 28.9 pg (27.0-33.0); MEAN CORPUSCULAR HGB CONC 30.9 g/dl (32.0-36.5); MEAN CORPUSCULAR VOLUME 93.5 fl (80.0-96.0); MONO % 6.9 % (2.0-8.0); NEUTROPHILS # 5.1 10^3/uL (1.5-8.5); NEUTROPHILS % 4.7 % (36.0-66.0); PLATELET COUNT, AUTOMATED 135 10^3/uL (150-450); RED BLOOD COUNT 4.18 10^6/uL (4.30-6.10)
[2024-01-15 11:28] LABS: LDH LACTATE DEHYDROGENASE 177 U/L (120-246); MONO # 7.6 10^3/uL (0.0-0.8)
[2024-01-15 11:29] LABS: ALBUMIN 3.8 G/DL (3.2-5.2); ALKALINE PHOSPHATASE 72 U/L (46-116); ALT/SGPT 16 U/L (7.0-40); AST/SGOT 13 U/L (<34); BLOOD UREA NITROGEN 27 MG/DL (9-23); CALCIUM LEVEL 9.6 MG/DL (8.3-10.6); CARBON DIOXIDE LEVEL 30 MMOL/L (20-31); CHLORIDE LEVEL 108 MMOL/L (98-107); GLOMERULAR FILTRATION RATE > 60.0 (>35); GLUCOSE, FASTING 112 MG/DL (74-106); POTASSIUM SERUM 4.7 MMOL/L (3.5-5.1); SODIUM LEVEL 142 MMOL/L (136-145); TOTAL PROTEIN 6.3 G/DL (5.7-8.2)
[2024-01-15 11:31] LABS: IMMUNOGLOBULIN A 94.3 MG/DL (40-350); IMMUNOGLOBULIN G 541 MG/DL (650-1600)
[2024-01-15 11:37] LABS: WHITE BLOOD COUNT 110.6 10^3/uL (4.0-10.0)
== END ==
LOC: M LABDRAWC 11:03
PROVIDERS: ATTEND Internal Medicine Medical Oncology
DX: C91.10 Chronic lymphocytic leukemia of B-cell type not having achieved remission (principal)

== ENCOUNTER → 2024-03-04 | Outpatient (REF) | payer OTHER ==
[2024-03-04 12:06] LABS: BASO # 0.1 10^3/uL (0.0-0.2); BASO % 0.1 % (0.0-1.0); EOS # 0.1 10^3/uL (0.0-0.5); EOS % 0.1 % (0.0-3.0); HEMATOCRIT 38.2 % (42.0-52.0); HEMOGLOBIN 12.1 g/dl (13.5-17.5); LYMPH # 84.6 10^3/uL (1.5-5.0); MEAN CORPUSCULAR HEMOGLOBIN 29.9 pg (27.0-33.0); MEAN CORPUSCULAR HGB CONC 31.7 g/dl (32.0-36.5); MEAN CORPUSCULAR VOLUME 94.3 fl (80.0-96.0); MONO % 5.9 % (2.0-8.0); NEUTROPHILS # 4.5 10^3/uL (1.5-8.5); NEUTROPHILS % 4.8 % (36.0-66.0); PLATELET COUNT, AUTOMATED 121 10^3/uL (150-450); RED BLOOD COUNT 4.05 10^6/uL (4.30-6.10)
[2024-03-04 12:30] LABS: LDH LACTATE DEHYDROGENASE 181 U/L (120-246)
[2024-03-04 12:32] LABS: ALBUMIN 3.7 G/DL (3.2-5.2); ALKALINE PHOSPHATASE 75 U/L (46-116); ALT/SGPT 19 U/L (7.0-40); AST/SGOT 19 U/L (<34); BLOOD UREA NITROGEN 20 MG/DL (9-23); CALCIUM LEVEL 9.6 MG/DL (8.3-10.6); CARBON DIOXIDE LEVEL 28 MMOL/L (20-31); CHLORIDE LEVEL 109 MMOL/L (98-107); CREATININE FOR GFR 1.08 MG/DL (0.70-1.30); GLOMERULAR FILTRATION RATE > 60.0 (>35); GLUCOSE, FASTING 105 MG/DL (74-106); POTASSIUM SERUM 4.9 MMOL/L (3.5-5.1); SODIUM LEVEL 142 MMOL/L (136-145); TOTAL PROTEIN 6.1 G/DL (5.7-8.2)
[2024-03-04 12:34] LABS: IMMUNOGLOBULIN A 90.3 MG/DL (40-350); IMMUNOGLOBULIN G 532 MG/DL (650-1600)
[2024-03-04 12:37] LABS: MONO # 5.6 10^3/uL (0.0-0.8)
== END ==
LOC: M LABDRWCV 11:07
PROVIDERS: ATTEND Internal Medicine Medical Oncology
DX: C91.10 Chronic lymphocytic leukemia of B-cell type not having achieved remission (principal)

== ENCOUNTER → 2024-04-30 | Outpatient (REF) | payer OTHER ==
[2024-04-30 11:50] LABS: BASO # 0.1 10^3/uL (0.0-0.2); BASO % 0.1 % (0.0-1.0); EOS # 0.1 10^3/uL (0.0-0.5); EOS % 0.1 % (0.0-3.0); HEMATOCRIT 37.5 % (42.0-52.0); HEMOGLOBIN 11.6 g/dl (13.5-17.5); LYMPH % 83.8 % (24.0-44.0); MEAN CORPUSCULAR HEMOGLOBIN 29.2 pg (27.0-33.0); MEAN CORPUSCULAR HGB CONC 30.9 g/dl (32.0-36.5); MEAN CORPUSCULAR VOLUME 94.5 fl (80.0-96.0); MONO % 11.6 % (2.0-8.0); NEUTROPHILS # 4.7 10^3/uL (1.5-8.5); NEUTROPHILS % 4.2 % (36.0-66.0); PLATELET COUNT, AUTOMATED 122 10^3/uL (150-450); RED BLOOD COUNT 3.97 10^6/uL (4.30-6.10)
[2024-04-30 12:00] LABS: MONO # 12.7 10^3/uL (0.0-0.8)
[2024-04-30 12:04] LABS: WHITE BLOOD COUNT 109.8 10^3/uL (4.0-10.0)
[2024-04-30 12:21] LABS: LDH LACTATE DEHYDROGENASE 163 U/L (120-246)
[2024-04-30 12:22] LABS: ALBUMIN 3.6 G/DL (3.2-5.2); ALKALINE PHOSPHATASE 67 U/L (46-116); ALT/SGPT 19 U/L (7.0-40); AST/SGOT 16 U/L (<34); BILIRUBIN,TOTAL 0.7 MG/DL (0.3-1.2); BLOOD UREA NITROGEN 23 MG/DL (9-23); CALCIUM LEVEL 9.6 MG/DL (8.3-10.6); CARBON DIOXIDE LEVEL 26 MMOL/L (20-31); CHLORIDE LEVEL 111 MMOL/L (98-107); CREATININE FOR GFR 1.02 MG/DL (0.70-1.30); GLOMERULAR FILTRATION RATE > 60.0 (>35); GLUCOSE, FASTING 117 MG/DL (74-106); POTASSIUM SERUM 4.3 MMOL/L (3.5-5.1); SODIUM LEVEL 143 MMOL/L (136-145); TOTAL PROTEIN 6.2 G/DL (5.7-8.2)
== END ==
LOC: M LABDRAWC 11:05
PROVIDERS: ATTEND Internal Medicine Medical Oncology
DX: C91.90 Lymphoid leukemia, unspecified not having achieved remission (principal)

== ENCOUNTER → 2024-06-25 | Outpatient (REF) | payer OTHER ==
[2024-06-25 12:10] LABS: LDH LACTATE DEHYDROGENASE 169 U/L (120-246)
[2024-06-25 12:11] LABS: ALBUMIN 3.6 G/DL (3.2-5.2); ALKALINE PHOSPHATASE 76 U/L (40-129); ALT/SGPT 15 U/L (7.0-40); AST/SGOT 12 U/L (<34); BASO # 0.1 10^3/uL (0.0-0.2); BASO % 0.1 % (0.0-1.0); BILIRUBIN,TOTAL 0.9 MG/DL (0.3-1.2); BLOOD UREA NITROGEN 23 MG/DL (9-23); CALCIUM LEVEL 9.7 MG/DL (8.3-10.6); CARBON DIOXIDE LEVEL 30 MMOL/L (20-31); CHLORIDE LEVEL 108 MMOL/L (98-107); CREATININE FOR GFR 1.13 MG/DL (0.70-1.30); EOS # 0.1 10^3/uL (0.0-0.5); EOS % 0.1 % (0.0-3.0); GLOMERULAR FILTRATION RATE > 60.0 (>35); GLUCOSE, FASTING 106 MG/DL (74-106); HEMATOCRIT 38.8 % (42.0-52.0); HEMOGLOBIN 12.1 g/dl (13.5-17.5); LYMPH # 87.9 10^3/uL (1.5-5.0); LYMPH % 83.2 % (24.0-44.0); MEAN CORPUSCULAR HGB CONC 31.2 g/dl (32.0-36.5); MEAN CORPUSCULAR VOLUME 96.3 fl (80.0-96.0); MONO # 12.4 10^3/uL (0.0-0.8); MONO % 11.7 % (2.0-8.0); NEUTROPHILS # 4.9 10^3/uL (1.5-8.5); NEUTROPHILS % 4.7 % (36.0-66.0); PLATELET COUNT, AUTOMATED 127 10^3/uL (150-450); POTASSIUM SERUM 4.6 MMOL/L (3.5-5.1); RED BLOOD COUNT 4.03 10^6/uL (4.30-6.10); SODIUM LEVEL 140 MMOL/L (136-145); TOTAL PROTEIN 6.5 G/DL (5.7-8.2); WHITE BLOOD COUNT 105.7 10^3/uL (4.0-10.0)
== END ==
LOC: M LABDRAWC 07:25
PROVIDERS: ATTEND Internal Medicine Medical Oncology
DX: C91.10 Chronic lymphocytic leukemia of B-cell type not having achieved remission (principal)

== ENCOUNTER → 2024-07-07 | Outpatient (CLI) | payer MEDICARE, OTHER ==
[~2024-07-07] MED LIST changes: +ISOVUE-370 76% 100ML VIAL As Ordered ONE
== END ==
LOC: M RAD 13:57
PROVIDERS: ATTEND Internal Medicine Medical Oncology
DX: C91.10 Chronic lymphocytic leukemia of B-cell type not having achieved remission (principal); R16.2 Hepatomegaly with splenomegaly, not elsewhere classified; K57.90 Diverticulosis of intestine, part unspecified, without perforation or abscess without bleeding; N40.0 Benign prostatic hyperplasia without lower urinary tract symptoms; J47.9 Bronchiectasis, uncomplicated; I70.0 Atherosclerosis of aorta; I25.10 Atherosclerotic heart disease of native coronary artery without angina pectoris
CPT/HCPCS: 71260; 74177; Q9967

== ENCOUNTER → 2024-09-02 | Outpatient (REF) | payer OTHER ==
[~2024-09-02] MED LIST changes: -ISOVUE-370 76% 100ML VIAL As Ordered ONE
[2024-09-02 11:52] LABS: BASO # 0.3 10^3/uL (0.0-0.2); BASO % 0.2 % (0.0-1.0); EOS # 0.2 10^3/uL (0.0-0.5); EOS % 0.2 % (0.0-3.0); HEMATOCRIT 41.3 % (42.0-52.0); HEMOGLOBIN 12.8 g/dl (13.5-17.5); LYMPH # 109.1 10^3/uL (1.5-5.0); LYMPH % 86.4 % (24.0-44.0); MEAN CORPUSCULAR HEMOGLOBIN 29.5 pg (27.0-33.0); MEAN CORPUSCULAR VOLUME 95.2 fl (80.0-96.0); MONO % 8.7 % (2.0-8.0); NEUTROPHILS # 5.5 10^3/uL (1.5-8.5); NEUTROPHILS % 4.3 % (36.0-66.0); PLATELET COUNT, AUTOMATED 120 10^3/uL (150-450); RED BLOOD COUNT 4.34 10^6/uL (4.30-6.10)
[2024-09-02 11:54] LABS: MONO # 10.9 10^3/uL (0.0-0.8); WHITE BLOOD COUNT 126.3 10^3/uL (4.0-10.0)
[2024-09-02 11:55] LABS: LDH LACTATE DEHYDROGENASE 171 U/L (120-246)
[2024-09-02 11:56] LABS: ALBUMIN 3.7 G/DL (3.2-5.2); ALKALINE PHOSPHATASE 75 U/L (40-129); ALT/SGPT 22 U/L (7.0-40); AST/SGOT 23 U/L (<34); BILIRUBIN,TOTAL 0.9 MG/DL (0.3-1.2); BLOOD UREA NITROGEN 20 MG/DL (9-23); CALCIUM LEVEL 9.6 MG/DL (8.3-10.6); CARBON DIOXIDE LEVEL 29 MMOL/L (20-31); CHLORIDE LEVEL 107 MMOL/L (98-107); CREATININE FOR GFR 1.15 MG/DL (0.70-1.30); GLOMERULAR FILTRATION RATE > 60.0 (>35); GLUCOSE, FASTING 117 MG/DL (74-106); POTASSIUM SERUM 4.6 MMOL/L (3.5-5.1); SODIUM LEVEL 143 MMOL/L (136-145); TOTAL PROTEIN 6.6 G/DL (5.7-8.2)
== END ==
LOC: M LABDRAWC 11:28
PROVIDERS: ATTEND Internal Medicine Medical Oncology
DX: C91.10 Chronic lymphocytic leukemia of B-cell type not having achieved remission (principal)

== ENCOUNTER → 2024-10-12 | Outpatient (REF) | payer MEDICARE ==
[~2024-10-12] MED LIST changes: +ACAL100T PO
[2024-10-12 13:18] LABS: BASO # 0.1 10^3/uL (0.0-0.2); BASO % 0.1 % (0.0-1.0); EOS # 0.3 10^3/uL (0.0-0.5); EOS % 0.3 % (0.0-3.0); HEMATOCRIT 38.9 % (42.0-52.0); LYMPH # 91.6 10^3/uL (1.5-5.0); LYMPH % 91.8 % (24.0-44.0); MEAN CORPUSCULAR HEMOGLOBIN 29.3 pg (27.0-33.0); MEAN CORPUSCULAR HGB CONC 30.8 g/dl (32.0-36.5); MEAN CORPUSCULAR VOLUME 95.1 fl (80.0-96.0); MONO # 2.1 10^3/uL (0.0-0.8); MONO % 2.1 % (2.0-8.0); NEUTROPHILS # 5.5 10^3/uL (1.5-8.5); NEUTROPHILS % 5.5 % (36.0-66.0); RED BLOOD COUNT 4.09 10^6/uL (4.30-6.10)
[2024-10-12 13:40] LABS: LDH LACTATE DEHYDROGENASE 193 U/L (120-246)
[2024-10-12 13:42] LABS: ALBUMIN 3.4 G/DL (3.2-5.2); ALKALINE PHOSPHATASE 67 U/L (40-129); ALT/SGPT 314 U/L (7.0-40); AST/SGOT 137 U/L (<34); BLOOD UREA NITROGEN 19 MG/DL (9-23); CALCIUM LEVEL 8.9 MG/DL (8.3-10.6); CARBON DIOXIDE LEVEL 27 MMOL/L (20-31); CHLORIDE LEVEL 105 MMOL/L (98-107); CREATININE FOR GFR 1.07 MG/DL (0.70-1.30); GLOMERULAR FILTRATION RATE > 60.0 (>35); GLUCOSE, FASTING 113 MG/DL (74-106); POTASSIUM SERUM 4.3 MMOL/L (3.5-5.1); SODIUM LEVEL 141 MMOL/L (136-145)
[2024-10-12 13:47] LABS: WHITE BLOOD COUNT 99.8 10^3/uL (4.0-10.0)
[2024-10-12 13:48] LABS: PLATELET COUNT, AUTOMATED 94 10^3/uL (150-450)
== END ==
LOC: M LABDRAWC 12:30
PROVIDERS: ATTEND Internal Medicine Medical Oncology
DX: C91.10 Chronic lymphocytic leukemia of B-cell type not having achieved remission (principal)

== ENCOUNTER → 2024-10-18 | Outpatient (REF) | payer MEDICARE ==
[2024-10-18 13:30] LABS: ALBUMIN 3.3 G/DL (3.2-5.2); ALKALINE PHOSPHATASE 89 U/L (40-129); ALT/SGPT 251 U/L (7.0-40); AST/SGOT 74 U/L (<34); BILIRUBIN,TOTAL 0.9 MG/DL (0.3-1.2); BLOOD UREA NITROGEN 19 MG/DL (9-23); CALCIUM LEVEL 9.2 MG/DL (8.3-10.6); CARBON DIOXIDE LEVEL 29 MMOL/L (20-31); CHLORIDE LEVEL 107 MMOL/L (98-107); CREATININE FOR GFR 1.13 MG/DL (0.70-1.30); GLOMERULAR FILTRATION RATE > 60.0 (>35); GLUCOSE, FASTING 111 MG/DL (74-106); POTASSIUM SERUM 4.4 MMOL/L (3.5-5.1); SODIUM LEVEL 141 MMOL/L (136-145); TOTAL PROTEIN 5.9 G/DL (5.7-8.2)
== END ==
LOC: M LABDRAWC 12:21
PROVIDERS: ATTEND Internal Medicine Medical Oncology
DX: C91.10 Chronic lymphocytic leukemia of B-cell type not having achieved remission (principal)

== ENCOUNTER → 2024-11-01 | Outpatient (REF) | payer MEDICARE ==
[2024-11-01 14:13] LABS: BASO # 0.1 10^3/uL (0.0-0.2); BASO % 0.2 % (0.0-1.0); EOS # 0.2 10^3/uL (0.0-0.5); EOS % 0.2 % (0.0-3.0); HEMATOCRIT 41.3 % (42.0-52.0); HEMOGLOBIN 12.7 g/dl (13.5-17.5); LYMPH # 74.1 10^3/uL (1.5-5.0); LYMPH % 83.3 % (24.0-44.0); MEAN CORPUSCULAR HEMOGLOBIN 29.4 pg (27.0-33.0); MEAN CORPUSCULAR HGB CONC 30.8 g/dl (32.0-36.5); MEAN CORPUSCULAR VOLUME 95.6 fl (80.0-96.0); MONO % 10.6 % (2.0-8.0); NEUTROPHILS % 5.5 % (36.0-66.0); PLATELET COUNT, AUTOMATED 155 10^3/uL (150-450); RED BLOOD COUNT 4.32 10^6/uL (4.30-6.10)
[2024-11-01 14:18] LABS: MONO # 9.5 10^3/uL (0.0-0.8)
[2024-11-01 14:44] LABS: LDH LACTATE DEHYDROGENASE 169 U/L (120-246)
[2024-11-01 14:45] LABS: ALBUMIN 3.6 G/DL (3.2-5.2); ALKALINE PHOSPHATASE 96 U/L (40-129); ALT/SGPT 33 U/L (7.0-40); AST/SGOT 23 U/L (<34); BILIRUBIN,TOTAL 0.8 MG/DL (0.3-1.2); BLOOD UREA NITROGEN 18 MG/DL (9-23); CALCIUM LEVEL 9.7 MG/DL (8.3-10.6); CARBON DIOXIDE LEVEL 28 MMOL/L (20-31); CHLORIDE LEVEL 106 MMOL/L (98-107); CREATININE FOR GFR 1.16 MG/DL (0.70-1.30); GLOMERULAR FILTRATION RATE > 60.0 (>35); GLUCOSE, FASTING 114 MG/DL (74-106); POTASSIUM SERUM 4.9 MMOL/L (3.5-5.1); SODIUM LEVEL 141 MMOL/L (136-145); TOTAL PROTEIN 6.3 G/DL (5.7-8.2)
== END ==
LOC: M SFHCCLAY 12:14
PROVIDERS: ATTEND Internal Medicine Medical Oncology
DX: C91.10 Chronic lymphocytic leukemia of B-cell type not having achieved remission (principal)

== ENCOUNTER → 2024-11-15 | Outpatient (REF) | payer MEDICARE ==
[2024-11-15 12:52] LABS: BASO # 0.1 10^3/uL (0.0-0.2); BASO % 0.1 % (0.0-1.0); EOS # 0.1 10^3/uL (0.0-0.5); EOS % 0.1 % (0.0-3.0); HEMATOCRIT 38.9 % (42.0-52.0); HEMOGLOBIN 12.3 g/dl (13.5-17.5); LYMPH # 57.4 10^3/uL (1.5-5.0); LYMPH % 87.1 % (24.0-44.0); MEAN CORPUSCULAR HEMOGLOBIN 29.9 pg (27.0-33.0); MEAN CORPUSCULAR HGB CONC 31.6 g/dl (32.0-36.5); MEAN CORPUSCULAR VOLUME 94.6 fl (80.0-96.0); MONO # 2.1 10^3/uL (0.0-0.8); MONO % 3.1 % (2.0-8.0); NEUTROPHILS # 6.1 10^3/uL (1.5-8.5); NEUTROPHILS % 9.3 % (36.0-66.0); RED BLOOD COUNT 4.11 10^6/uL (4.30-6.10)
[2024-11-15 12:58] LABS: ALBUMIN 3.5 G/DL (3.2-5.2); ALKALINE PHOSPHATASE 75 U/L (40-129); ALT/SGPT 72 U/L (7.0-40); AST/SGOT 35 U/L (<34); BLOOD UREA NITROGEN 19 MG/DL (9-23); CARBON DIOXIDE LEVEL 27 MMOL/L (20-31); CHLORIDE LEVEL 109 MMOL/L (98-107); CREATININE FOR GFR 1.18 MG/DL (0.70-1.30); GLOMERULAR FILTRATION RATE > 60.0 (>35); GLUCOSE, FASTING 111 MG/DL (74-106); LDH LACTATE DEHYDROGENASE 130 U/L (120-246); POTASSIUM SERUM 4.3 MMOL/L (3.5-5.1); SODIUM LEVEL 142 MMOL/L (136-145); TOTAL PROTEIN 5.9 G/DL (5.7-8.2)
[2024-11-15 13:13] LABS: PLATELET COUNT, AUTOMATED 86 10^3/uL (150-450); WHITE BLOOD COUNT 65.9 10^3/uL (4.0-10.0)
== END ==
LOC: M LABDRAWC 12:22
PROVIDERS: ATTEND Internal Medicine Medical Oncology
DX: C91.10 Chronic lymphocytic leukemia of B-cell type not having achieved remission (principal)

== ENCOUNTER 2024-11-18 21:39 | Emergency (ER) | payer MEDICARE ==
[~2024-11-18] VITALS: Ht 167.6 cm; Wt 79.5 kg
[2024-11-18 21:45] VITALS: TEMP 98.6
[2024-11-18] MEDS: NS (Normal Saline) 0.9% 1,000 ML IV ONE (22:45)
[2024-11-18] MEDS: ONDANSETRON 4MG 2ML VIAL IV ONE (22:45)
[2024-11-18 23:17] LABS: EOS # 0.1 10^3/uL (0.0-0.5); EOS % 0.1 % (0.0-3.0); HEMATOCRIT 38.1 % (42.0-52.0); HEMOGLOBIN 12.4 g/dl (13.5-17.5); LYMPH # 31.3 10^3/uL (1.5-5.0); MEAN CORPUSCULAR HEMOGLOBIN 30.4 pg (27.0-33.0); MEAN CORPUSCULAR HGB CONC 32.5 g/dl (32.0-36.5); MEAN CORPUSCULAR VOLUME 93.4 fl (80.0-96.0); MONO # 1.7 10^3/uL (0.0-0.8); MONO % 3.8 % (2.0-8.0); NEUTROPHILS # 10.9 10^3/uL (1.5-8.5); NEUTROPHILS % 24.7 % (36.0-66.0); RED BLOOD COUNT 4.08 10^6/uL (4.30-6.10)
[2024-11-18 23:28] LABS: PLATELET COUNT, AUTOMATED 96 10^3/uL (150-450)
[2024-11-18 23:31] LABS: WHITE BLOOD COUNT 44.1 10^3/uL (4.0-10.0)
[2024-11-18 23:41] LABS: ALBUMIN 3.5 G/DL (3.2-5.2); BILIRUBIN,TOTAL 0.6 MG/DL (0.3-1.2); GLOMERULAR FILTRATION RATE 74.2 (>35); POTASSIUM SERUM 4.6 MMOL/L (3.5-5.1); TOTAL PROTEIN 5.9 G/DL (5.7-8.2)
[2024-11-19 00:09] VITALS: O2SAT 97
[2024-11-19 00:14] VITALS: BP 130/64
[2024-11-19] MEDS ORDERED: ONDA-282 PO (00:16)
== END 2024-11-19 00:27 | disposition home or self-care (01) ==
LOC: M ED 21:39
DX: K52.1 Toxic gastroenteritis and colitis (principal); T45.1X5A Adverse effect of antineoplastic and immunosuppressive drugs, initial encounter; C91.10 Chronic lymphocytic leukemia of B-cell type not having achieved remission; Z79.899 Other long term (current) drug therapy
CPT/HCPCS: 36415; 80053; 85025; 85049; 85055; 87486; 87581; 87633; 87798; 99284; J2405

== ENCOUNTER → 2024-11-29 | Outpatient (REF) | payer MEDICARE ==
[~2024-11-29] MED LIST changes: +ONDA-282 PO
[2024-11-29 16:03] LABS: BASO # 0.1 10^3/uL (0.0-0.2); BASO % 0.1 % (0.0-1.0); EOS # 0.1 10^3/uL (0.0-0.5); EOS % 0.2 % (0.0-3.0); HEMATOCRIT 39.6 % (42.0-52.0); HEMOGLOBIN 12.1 g/dl (13.5-17.5); LYMPH # 56.2 10^3/uL (1.5-5.0); LYMPH % 90.4 % (24.0-44.0); MEAN CORPUSCULAR HEMOGLOBIN 29.4 pg (27.0-33.0); MEAN CORPUSCULAR HGB CONC 30.6 g/dl (32.0-36.5); MEAN CORPUSCULAR VOLUME 96.4 fl (80.0-96.0); MONO # 1.3 10^3/uL (0.0-0.8); MONO % 2.2 % (2.0-8.0); NEUTROPHILS # 4.3 10^3/uL (1.5-8.5); NEUTROPHILS % 6.9 % (36.0-66.0); RED BLOOD COUNT 4.11 10^6/uL (4.30-6.10)
[2024-11-29 16:07] LABS: PLATELET COUNT, AUTOMATED 98 10^3/uL (150-450); WHITE BLOOD COUNT 62.2 10^3/uL (4.0-10.0)
[2024-11-29 16:21] LABS: ALBUMIN 3.9 G/DL (3.2-5.2); BILIRUBIN,TOTAL 0.7 MG/DL (0.3-1.2); CALCIUM LEVEL 8.9 MG/DL (8.3-10.6); CREATININE FOR GFR 1.06 MG/DL (0.70-1.30); GLOMERULAR FILTRATION RATE 69.2 (>35); POTASSIUM SERUM 4.3 MMOL/L (3.5-5.1); TOTAL PROTEIN 5.8 G/DL (5.7-8.2)
== END ==
LOC: M LABDRAWC 15:25
PROVIDERS: ATTEND Internal Medicine Medical Oncology
DX: C91.10 Chronic lymphocytic leukemia of B-cell type not having achieved remission (principal)

== ENCOUNTER → 2024-12-15 | Outpatient (CLI) | payer MEDICARE ==
[~2024-12-15] MED LIST changes: +ISOVUE-370 76% 100ML VIAL ONE; +ONDA-84 PO
== END ==
LOC: M PLAIMG 09:56
PROVIDERS: ATTEND Nurse Practitioner Women's Health
DX: C91.90 Lymphoid leukemia, unspecified not having achieved remission (principal); R16.1 Splenomegaly, not elsewhere classified; K57.90 Diverticulosis of intestine, part unspecified, without perforation or abscess without bleeding; N40.0 Benign prostatic hyperplasia without lower urinary tract symptoms; I25.10 Atherosclerotic heart disease of native coronary artery without angina pectoris; D18.09 Hemangioma of other sites
CPT/HCPCS: 71260; 74177; Q9967

== ENCOUNTER → 2024-12-30 | Outpatient (REF) | payer MEDICARE ==
[~2024-12-30] MED LIST changes: -ISOVUE-370 76% 100ML VIAL ONE
[2024-12-30 12:38] LABS: BASO # 0.1 10^3/uL (0.0-0.2); BASO % 0.1 % (0.0-1.0); EOS # 0.2 10^3/uL (0.0-0.5); EOS % 0.3 % (0.0-3.0); HEMATOCRIT 37.9 % (42.0-52.0); HEMOGLOBIN 11.8 g/dl (13.5-17.5); LYMPH # 49.7 10^3/uL (1.5-5.0); LYMPH % 88.8 % (24.0-44.0); MEAN CORPUSCULAR HEMOGLOBIN 30.1 pg (27.0-33.0); MEAN CORPUSCULAR HGB CONC 31.1 g/dl (32.0-36.5); MEAN CORPUSCULAR VOLUME 96.7 fl (80.0-96.0); MONO # 0.9 10^3/uL (0.0-0.8); MONO % 1.7 % (2.0-8.0); NEUTROPHILS % 8.9 % (36.0-66.0); PLATELET COUNT, AUTOMATED 119 10^3/uL (150-450); RED BLOOD COUNT 3.92 10^6/uL (4.30-6.10)
[2024-12-30 13:10] LABS: ALBUMIN 3.8 G/DL (3.2-5.2); BILIRUBIN,TOTAL 0.9 MG/DL (0.3-1.2); CALCIUM LEVEL 9.6 MG/DL (8.3-10.6); CREATININE FOR GFR 1.13 MG/DL (0.70-1.30); GLOMERULAR FILTRATION RATE 64.1 (>35); POTASSIUM SERUM 4.5 MMOL/L (3.5-5.1)
== END ==
LOC: M LABDRAWC 11:59
PROVIDERS: ATTEND Internal Medicine Medical Oncology
DX: C91.10 Chronic lymphocytic leukemia of B-cell type not having achieved remission (principal)

== ENCOUNTER → 2025-02-28 | Outpatient (REF) | payer MEDICARE ==
[2025-02-28 12:56] LABS: BASO # 0.2 10^3/uL (0.0-0.2); BASO % 0.4 % (0.0-1.0); EOS # 0.2 10^3/uL (0.0-0.5); EOS % 0.5 % (0.0-3.0); LYMPH # 33.8 10^3/uL (1.5-5.0); LYMPH % 86.1 % (24.0-44.0); MONO # 0.8 10^3/uL (0.0-0.8); MONO % 2.1 % (2.0-8.0); NEUTROPHILS # 4.2 10^3/uL (1.5-8.5); NEUTROPHILS % 10.7 % (36.0-66.0); PLATELET COUNT, AUTOMATED 110 10^3/uL (150-450)
[2025-02-28 12:57] LABS: ALT/SGPT 20.0 U/L (7.0-40); AST/SGOT 18.0 U/L (<34); CALCIUM LEVEL 9.4 MG/DL (8.3-10.6); CARBON DIOXIDE LEVEL 28.0 MMOL/L (20-31); CHLORIDE LEVEL 105.0 MMOL/L (98-107); CREATININE FOR GFR 1.05 MG/DL (0.70-1.30); GLOMERULAR FILTRATION RATE 69.6 (>35); POTASSIUM SERUM 4.3 MMOL/L (3.5-5.1); SODIUM LEVEL 143.0 MMOL/L (136-145)
== END ==
LOC: M LABDRAWC 11:58
PROVIDERS: ATTEND Internal Medicine Medical Oncology
DX: C91.10 Chronic lymphocytic leukemia of B-cell type not having achieved remission (principal)

== ENCOUNTER → 2025-03-28 | Outpatient (REF) | payer MEDICARE ==
[~2025-03-28] MED LIST changes: -RA T500C2 PO; +TURM500C10 PO
[2025-03-28 13:15] LABS: LDH LACTATE DEHYDROGENASE 124.0 U/L (120-246)
[2025-03-28 13:16] LABS: ALT/SGPT 20.0 U/L (7.0-40); AST/SGOT 19.0 U/L (<34); BASO # 0.0 10^3/uL (0.0-0.2); BASO % 0.1 % (0.0-1.0); CALCIUM LEVEL 9.1 MG/DL (8.3-10.6); CARBON DIOXIDE LEVEL 29.0 MMOL/L (20-31); CHLORIDE LEVEL 104.0 MMOL/L (98-107); CREATININE FOR GFR 1.18 MG/DL (0.70-1.30); EOS # 0.1 10^3/uL (0.0-0.5); EOS % 0.2 % (0.0-3.0); GLOMERULAR FILTRATION RATE 60.5 (>35); LYMPH # 25.8 10^3/uL (1.5-5.0); LYMPH % 82.6 % (24.0-44.0); MONO # 1.4 10^3/uL (0.0-0.8); MONO % 4.4 % (2.0-8.0); NEUTROPHILS # 3.9 10^3/uL (1.5-8.5); NEUTROPHILS % 12.6 % (36.0-66.0); PLATELET COUNT, AUTOMATED 103 10^3/uL (150-450); POTASSIUM SERUM 4.3 MMOL/L (3.5-5.1); SODIUM LEVEL 142.0 MMOL/L (136-145)
== END ==
LOC: M LABDRAWC 12:12
PROVIDERS: ATTEND Internal Medicine Medical Oncology
DX: C91.10 Chronic lymphocytic leukemia of B-cell type not having achieved remission (principal)

== ENCOUNTER → 2025-04-15 | Outpatient (REF) | payer MEDICARE ==
[2025-04-15 12:48] LABS: CHOLESTEROL LEVEL 136.0 MG/DL (<200); CHOLESTEROL RISK RATIO 3.26 (<5); FREE T4 1.16 NG/DL (0.89-1.76); LDL CHOLESTEROL 75.8 MG/DL (<100); NON-HDL-C 94.4 MG/DL; TRIGLYCERIDES LEVEL 93.0 MG/DL (<150)
[2025-04-15 12:57] LABS: ESTIMATED AVERAGE GLUCOSE 126.0 MG/DL (60-110)
== END ==
LOC: M SFHCCLAY 07:27
PROVIDERS: ATTEND Physician Assistant Medical
DX: E89.0 Postprocedural hypothyroidism (principal); R73.03 Prediabetes; E78.2 Mixed hyperlipidemia

== ENCOUNTER → 2025-05-17 | Outpatient (CLI) | payer MEDICARE | LOC: M CLY 13:55 | PROVIDERS: ATTEND Physician Assistant Medical | DX: J18.9 Pneumonia, unspecified organism (principal) ==

== ENCOUNTER → 2025-05-30 | Outpatient (REF) | payer MEDICARE ==
[2025-05-30 13:53] LABS: BASO # 0.1 10^3/uL (0.0-0.2); BASO % 0.4 % (0.0-1.0); EOS # 0.1 10^3/uL (0.0-0.5); EOS % 0.5 % (0.0-3.0); LYMPH # 22.2 10^3/uL (1.5-5.0); LYMPH % 80.1 % (24.0-44.0); MONO # 0.7 10^3/uL (0.0-0.8); MONO % 2.4 % (2.0-8.0); NEUTROPHILS # 4.5 10^3/uL (1.5-8.5); NEUTROPHILS % 16.4 % (36.0-66.0); PLATELET COUNT, AUTOMATED 123 10^3/uL (150-450)
[2025-05-30 13:58] LABS: ALT/SGPT 21.0 U/L (7.0-40); AST/SGOT 18.0 U/L (<34); CALCIUM LEVEL 9.5 MG/DL (8.3-10.6); CARBON DIOXIDE LEVEL 28.0 MMOL/L (20-31); CHLORIDE LEVEL 105.0 MMOL/L (98-107); CREATININE FOR GFR 1.11 MG/DL (0.70-1.30); GLOMERULAR FILTRATION RATE 65.1 (>35); POTASSIUM SERUM 4.5 MMOL/L (3.5-5.1); SODIUM LEVEL 143.0 MMOL/L (136-145)
== END ==
LOC: M LABDRAWC 12:22
PROVIDERS: ATTEND Internal Medicine Medical Oncology
DX: C95.10 Chronic leukemia of unspecified cell type not having achieved remission (principal)